=== PATIENT | female | born 1970 | race Caucasian/White ===

== ENCOUNTER 2019-12-26 15:27 | Emergency (ER) | payer BC, SELFPAY ==
--- NOTE | ~2019-12-26 | XR_ITS ---
EXAMINATION: [id number] DATE: 12/26/2019 16:30 INDICATION: Right chest pain. Fall. TECHNIQUE: A frontal view of the chest and 3 views of the right ribs were obtained. COMPARISON: None. FINDINGS: The chest demonstrates clear lungs without pneumonia, pleural effusion, or pneumothorax. Th e heart size is normal. IMPRESSION: 1. No rib fracture. Reviewed, dictated and finalized at location A. ATIENT PROGRAM COORDINATOR IMPRESSION: 1. No rib fracture.
[2019-12-26 16:03] VITALS: BP 156/86; PULSE 98; RESP 18; TEMP 36.7; O2SAT 100
--- NOTE | 2019-12-26 16:03 | ED.GENADULT ---
HPI - General Adult General Chief complaint: Chest Pain <BISI Olmedo Last Filed: 12/26/19 17:41> Stated complaint: right rib pain-fall <BISI Olmedo Last Filed: 12/26/19 17:41> Time Seen by Provider: 12/26/19 16:02 <BISI Olmedo Last Filed: 12/26/19 17:41> Source: patient <BISI Olmedo Last Filed: 12/26/19 17:41> Mode of arrival: ambulatory <BISI Olmedo Last Filed: 12/26/19 17:41> Limitations: no limitations <BISI Olmedo Last Filed: 12/26/19 17:41> History of Present Illness HPI narrative: Patient slipped and fell in her bathroom on Sunday night and hit her right ribs on the edge of the tub. She has had progressively worsening pain and difficulty breathing since that time. Her primary care physician ordered tramadol for the pain which she has been taking 100 mg every 3-4 hours without any relief. <BISI Olmedo Last Filed: 12/26/19 17:41> Related Data Home medications: Home Medications Medication Instructions Recorded Confirmed amlodipine 5 mg tablet 5 mg PO DAILY 04/24/19 buspirone 5 mg tablet 5 mg PO TID 04/24/19 citalopram 40 mg tablet 40 mg PO DAILY 04/24/19 <BISI Olmedo Last Filed: 12/26/19 17:41> Allergies/adverse reactions: Allergies Allergy/AdvReac Type Severity Reaction Status Date / Time ofloxacin Allergy Mild RASH Verified 09/18/18 11:14 ciprofloxacin Allergy Unknown Verified 04/09/12 08:11 Sulfa (Sulfonamide Allergy Unknown Verified 05/01/18 08:17 Antibiotics) <BISI Olmedo Last Filed: 12/26/19 17:41> Review of Systems Review of Systems: All systems reviewed & are unremarkable except as noted in HPI and below <BISI Olmedo Last Filed: 12/26/19 17:41> [facility] Past Medical History Medical History: Medical History Agoraphobia with panic disorder Alcohol abuse Severe obstructive sleep apnea <Nathaly Bravo PA-C - Last Filed: 12/26/19 17:41> Family History Family History: Family History Father Family history of lung cancer Hypertension Family history of chronic obstructive pulmonary disease Mother Family history of lung cancer <Nathaly Bravo PA-C - Last Filed: 12/26/19 17:41> Social History Social History: Social History (Updated 12/26/19 @ 16:14 by Nathaly Bravo PA-C) Smoking status: Former smoker Smoking end date: 02/12/17 Alcohol intake: never Substance use: never Living arrangements: with family <Nathaly Bravo PA-C - Last Filed: 12/26/19 17:41> Exam Const: General: in distress (due to pain) mild <Nathaly Bravo PA-C - Last Filed: 12/26/19 17:41> Orientation/consciousness: patient oriented x3 <Nathaly Bravo PA-C - Last Filed: 12/26/19 17:41> Limitations: no limitations <Nathaly Bravo PA-C - Last Filed: 12/26/19 17:41> HENMT: Head: normal to inspection <Nathaly Bravo PA-C - Last Filed: 12/26/19 17:41> Chest: Chest palpation & inspection: normal inspection of the chest and localized rib tenderness with anteroposterior compression (right ant) <Nathaly Bravo PA-C - Last Filed: 12/26/19 17:41> Resp: Effort & Inspection: labored <Nathaly Bravo PA-C - Last Filed: 12/26/19 17:41> Auscultation: clear to auscultation bilaterally <Nathaly Bravo PA-C - Last Filed: 12/26/19 17:41> Cardio: Rate: regular rate <Nathaly Bravo PA-C - Last Filed: 12/26/19 17:41> Rhythm: regular rhythm <Nathaly Bravo PA-C - Last Filed: 12/26/19 17:41> Skin: General skin exam: normal color <Nathaly Bravo PA-C - Last Filed: 12/26/19 17:41> Other: No bruising noted <Nathaly Bravo PA-C - Last Filed: 12/26/19 17:41> Extrem: General: normal to inspection <BISI Olmedo Last Filed: 12/26/19 17:41> Psych: Mental Status: ment
[2019-12-26] MEDS: IBUPROFEN 400 MG TABLET 800 MG PO (16:20)
[2019-12-26 17:51] VITALS: BP 132/68; PULSE 78; RESP 18; O2SAT 99
== END 2019-12-26 17:52 | disposition home or self-care (01) ==
PROVIDERS: Emergency Provider Emergency Medicine; PCP Family Medicine
DX: S20.211A Contusion of right front wall of thorax, initial encounter (principal); G47.33 Obstructive sleep apnea (adult) (pediatric); F40.01 Agoraphobia with panic disorder; Z87.891 Personal history of nicotine dependence; W01.198A Fall on same level from slipping, tripping and stumbling with subsequent striking against other object, initial encounter
CPT/HCPCS: 71101; 99283; A9270

== ENCOUNTER 2021-09-30 16:51 | Outpatient (CLI) | payer OTHER, SELFPAY ==
--- NOTE | ~2021-09-30 | XR_ITS ---
EXAMINATION: XR elbow RT min 3V DATE: 09/30/2021 17:27 INDICATION: Right elbow pain. TECHNIQUE: 4 views of right elbow were obtained. COMPARISON: None. FINDINGS: Bone alignment is normal. No fracture. Joint spaces are normal. There is an enthesophyte at lateral humeral epicondyle. No elbow joint effusion. There is soft tissue swelling overlying the ole cranon, consistent with bursitis. IMPRESSION: 1. Olecranon bursitis. Reviewed, dictated and finalized at location A. IMPRESSION: 1. Olecranon bursitis.
--- NOTE | ~2021-09-30 | XR_ITS ---
EXAMINATION: XR hip RT 2V w AP pelvis DATE: 09/30/2021 17:27 INDICATION: Right hip pain. TECHNIQUE: An anteroposterior view pelvis and 2 views of right hip standing were obtained. COMPARISON: None. FINDINGS: Bone alignment is normal. No fracture. There is mild osteoarthritis of the hips. There is a n intrauterine device in expected position. IMPRESSION: 1. Mild osteoarthritis of the hips. Reviewed, dictated and finalized at location A.
== END 2021-09-30 16:52 ==
DX: M70.21 Olecranon bursitis, right elbow (principal); M16.0 Bilateral primary osteoarthritis of hip
CPT/HCPCS: 73080; 73502

== ENCOUNTER 2024-05-17 16:23 | Observation (INO) | payer SELFPAY ==
[2024-05-17] VITALS (12 sets, daily range): BP systolic 116–168; BP diastolic 59–90; PULSE 91–115; RESP 12–23; TEMP 36.5; O2SAT 92–100; BMI 26.9
--- NOTE | ~2024-05-17 | XR_ITS ---
EXAMINATION: XR chest 2V Exam Date/Time: 05/17/2024 17:10 CDT HISTORY: CHEST PAIN Comparison: None. RESULT: Lines, tubes, and devices: None. Lungs and pleura: Lordotic position with slightly low lung volumes in the lateral view. Indistinct ve ssels, with possible cephalization. Mild diffuse groundglass opacities and patchy subsegmental basila r airspace disease. Cardiomediastinal silhouette: Enlarged heart. Dilated central pulmonary arteries as can be seen with pulmonary hypertension. Other: No acute osseous or upper abdominal finding. IMPRESSION: Cardiomegaly with pulmonary vascular congestion. Subsegmental basilar atelectasis/consolidation Reviewed, dictated and finalized at location K. IMPRESSION: Cardiomegaly with pulmonary vascular congestion. Subsegmental basilar atelectas is/consolidation
--- OUTSIDE RECORDS SUMMARY | 2024-05-17 16:26 | XMS_ITS | Clinical Summary ---
Author Organization [facility] Address [address] [place] [address] Care Team Providers Care Pattern Grader Cutter Name Role Phone Yoanna Grimes Primary Care Provider [phone] Source Comments [facility],non-owned Affiliates and Associated Physician Practices is amultiple site organization consisting of ambulatory clinics and hospital sitesin [place], [place], [place] and [place]. This disclosure is being madepursuant to the Care Everywhere program and may not contain all information available regarding this patient. Last updated 17.[facility] Social History Tobacco Use Types Packs/Day Years Used Date Smoking Tobacco: Never Assessed Sex and Gender Information Value Date Recorded Sex Assigned at Not on file Gender Identity Not on file Sexual Orientation Not on file Plan of Treatment Health Maintenance Due Date Last Done Comments COLOGUARD (AGES 45-75) - COL ON CA SCREENING 1970 COLON MONITORING 1970 COLONOSCOPY - COLON CA SCREENING 1970 CT COLONOGRAPHY - COLON CA SCREENING 1970 Colorectal Cancer Screening 1970 FIT - COLON CA SCREENING 1970 FLEX SIG - COLON CA SCREENING 1970 LIPID TESTING 1970 MAMMOGRAM 1970 PAP SMEAR 1970 HIV SCREENING 1985 HEPATITIS C SCREENING 03/14/1988 DTAP/TDAP/TD VACCINES (1 - Tdap) 1989 HEPATITIS B VACCINE (1 of 3 - 19+ 3-dose series) 1989 PNEUMOCOCCAL VACCINE 50+ (1 of 1 - PCV) 2020 ZOSTER VACCINE (1 of 2) 2020 COVID-19 VACCINE ( - 2023-2 5 season) 2023 INFLUENZA VACCINE (#1) 2023 DEPRESSION SCREENING 02/13/2024 HIB VACCINE Aged Out No longer eligi ble based on patient's age to complete this topic HPV VACCINE Aged Out No longer eligi ble based on patient's age to complete this topic MENINGOCOCCAL (Group B) VACC INE SHARED DECISION-MAKING Aged Out No longer eligibl e based on patient's age to complete this topic MENINGOCOCCAL GROUPS A/C/Y/W VACCINE Aged Out No longer eligible b ased on patient's age to complete this topic PNEUMOCOCCAL VACCINE Aged Out No long er eligible based on patient's age to complete this topic Care Teams Pattern Grader Cutter Relationship Specialty Start Date End Date Yoanna Grimes [address] [place] [address] PCP - General 04/19/23
--- OUTSIDE RECORDS SUMMARY | 2024-05-17 16:26 | XMS_ITS | Data Portability ---
Author Organization [place] [facility], Carlos Lind Address [address] [place] [address] Assessment Encounter Date Assessment Date Assessment LastModified by Organization Details LastModified Time 05/08/2024 05/08/202404/2024 CBC h/h 17.0/53 CMP Na 146 Cl 107 GFR 80 Cr 0.86 fts nl T 215 G 83 H 60 L 140 m/c 119 A1c 5.7 TSH nl 1) blood counts normal elevated h.h---> check ferritin, fe panel 2) renal fct liver fct normal na and cl slightly elevated--> ? hydrated 3) LDL 140 okay no statin 4) m/c 119 microalbuminuria 5) thyroid nl 6) A1c borderline pre DM 7) htn ? add on amolodipine in 2 weeks if checking 8) appt to get IUD out the above was reviewed the following is plan for today: [email or web address] Not available 05/08/2024 16:02:37 Plan of Treatment Reminders Order Date Submit Date Provider Last Modified By Organization Details Last Modified Time Details Appointments InPerson; Chronic Disease Mgmt 2024 10:30A Damon Grimes MD Not available Not available Not available Lab TSH, ultra-sen sitive, serum 20242 025 GLADIS [facility] ([place]), [address] [facility], [place], [address], 05/06/2024 11:14:55 albumin/c reatinine , mass ratio, urine 05/05/2 025 GLADIS [facility] ([place]), [address] [facility], [place], [address], 05/06/2024 11:14:54 CBC w/ auto diff 2024 025 [facility] ([place]), [address] [place], [address], 05/06/2024 11:14:52 CMP, serum or plasma 2024 025 [facility]), [address] [place], [address], 05/06/2024 11:14:53 lipid panel, serum 2024 025 [facility]), [address] [place], [address], 05/06/2024 11:14:53 HbA1c (hemoglob in A1c), blood 2024 [facility]), [address] [place], [address], 05/06/2024 11:14:54 Referral [facility] referral - pt with longstand ing anxiety refuses to see psychiatr ist, advised germaine james , to start with John Chand [email or web address] [facility], [address] [place], [address], 04/23/2024 14:43:27 Procedures None recorded. Surgeries None recorded. Imaging None recorded. Medication Orders olmesarta n 20 mg-hydroc hlorothia zide 12.5 mg tablet 2024 [facility], [address] [place], [address], 05/05/2024 11:29:30 alprazola m 0.5 mg tablet 2024 [facility], [address] [place], [address], 04/23/2024 14:43:29 amoxicill in 875 mg tablet 2023 025 [facility] [address], [address] [facility], [place], [address], 03/17/2024 15:03:44 Patient TargetsNo targets recorded. Patient InstructionsNo instructions recorded. Reason for Referral Behavioral Health Referral f or Generalized anxiety disorder pt with longstanding anxiety refuses to see psychiatrist, advised counseling , to start with John Chand Referring Physician: Chichi Grimes, Family Medicine, Encounter Date: 04/23/2024 Results Created Date Observation Date Name Description Value Unit Range Abnormal Flag Note LastModifiedBy Organization Detail LastModifiedTime 05/06/1905/06/2024 CBC WITH DIFFE RENTI AL/PL ATELE T WBC 7.7 x10e3 /uL 3.4-10 .8 normal Not Available [facility] ([facility]) [address] [place], [address], 05/06/2024 11:14:52 05/06/1905/06/2024 CBC WITH DIFFE RENTI AL/PL ATELE T RBC 5.31 x10e6 /uL 3.77-5 .28 above high normal Not Available [facility] ([facility]) [address] [place], [address], 05/06/2024 11:14:52 05/06/1905/06/2024 CBC WITH DIFFE RENTI AL/PL ATELE T hemoglobin 17.0 g/dL 11.1-1 5.9 above high normal Not Available [facility] ([facility]) [address] [place], [address], 05/06/2024 11:14:52 05/06/1905/06/2024 CBC WITH DIFFE RENTI AL/PL ATELE T hematocrit 52.9 % 34.0-4 6.6 above high normal Not Available [facility] ([facility]) [address] [place], [address], 05/06/2024 11:14:52 05/06/19 25 05/06/2024 CBC WITH DIFFE RENTI AL/PL ATELE T MCV 100 fL 79-97 above high normal Not Available [facility] ([facility]) [address] [facility], [place], [address], 05/06/2024 11:14:52 05/06/1905/06/2024 CBC WITH DIFFE RENTI AL/PL ATELE T MCH 32.0 pg 26.6-3 3.0 normal Not Available [facility] ([facility]) [address] [facility], [place], [address], 05/06/2024 11:14:52 05/06/1905/06/2024 CBC WITH DIFFE RENTI AL/PL ATELE T MCHC 32.1 g/dL 31.5-3 5.7 normal Not Available [facility] ([facility]) [address] [facility], [place], [address], 05/06/2024 11:14:52 05/06/19 25 05/06/2024 CBC WITH DIFFE RENTI AL/PL ATELE T RDW 13.5 % 11.7-1 5.4 Not Available [facility] ([facility]) [address] [facility], [place], [address], 05/06/2024 11:14:52 05/06/1905/06/2024 CBC WITH DIFFE RENTI AL/PL ATELE T platelets 267 x10e3 /uL 150-45 0 normal Not Available [facility] ([facility]) [address] [facility], [place], [address], 05/06/2024 11:14:52 05/06/1905/06/2024 CBC WITH DIFFE RENTI AL/PL ATELE T neutrophils 50 % not estab. normal Not Available [facility] ([facility]) [address] [facility], [place], [address], 05/06/2024 11:14:52 05/06/19 25 05/06/2024 CBC WITH DIFFE RENTI AL/PL ATELE T lymphs 38 % not estab. normal Not Available [facility] ([facility]) [address] [facility], [place], [address], 05/06/2024 11:14:52 05/06/19 25 05/06/2024 CBC WITH DIFFE RENTI AL/PL ATELE T monocytes 9 % not estab. normal Not Available [facility] ([facility]) [address] [facility], [place], [address], 05/06/2024 11:14:52 05/06/19 25 05/06/2024 CBC WITH DIFFE RENTI AL/PL ATELE T eos 2 % not estab. normal Not Available [facility] ([facility]) [address] [facility], [place], [address], 05/06/2024 11:14:52 05/06/19 25 05/06/2024 CBC WITH DIFFE RENTI AL/PL ATELE T basos 1 % not estab. 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 0 normal Not Available [facility] ([facility]) [address] [facility], [place], [address], 05/06/2024 11:14:52 05/06/19 25 05/06/2024 CBC WITH DIFFE RENTI AL/PL ATELE T lymphs (absolute) 2.9 x10e3 /uL 0.7-3. 1 normal Not Available [facility] ([facility]) [address] [place], [address], 05/06/2024 11:14:52 05/06/1905/06/2024 CBC WITH DIFFE RENTI AL/PL ATELE T monocytes(ab solute) 0.7 x10e3 /uL 0.1-0. 9 normal Not Available [facility] ([facility]) [address] [place], [address], 05/06/2024 11:14:52 05/06/1905/06/2024 CBC WITH DIFFE RENTI AL/PL ATELE T eos (absolute) 0.1 x10e3 /uL 0.0-0. 4 normal Not Available [facility] ([facility]) [address] [place], [address], 05/06/2024 11:14:52 05/06/1905/06/2024 CBC WITH DIFFE RENTI AL/PL ATELE T baso (absolute) 0.1 x10e3 /uL 0.0-0. 2 normal Not Available [facility] ([facility]) [address] [place], [address], 05/06/2024 11:14:52 05/06/1905/06/2024 CBC WITH DIFFE RENTI AL/PL ATELE T immature granulocytes 0 % not estab. Not Available [facility] ([facility]) [address] [place], [address], 05/06/2024 11:14:52 05/06/1905/06/2024 CBC WITH DIFFE RENTI AL/PL ATELE T immature grans (abs) 0.0 x10e3 /uL 0.0-0. 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 METAB OLIC PANEL (14) glucose 99 mg/dL 70-99 normal Not Available [facility] ([facility]) [address] [facility], [place], [address], 05/06/2024 11:14:53 05/06/19 25 05/06/2024 COMP. METAB OLIC PANEL (14) BUN 18 mg/dL 6-24 normal Not Available [facility] ([facility]) [address] [place], [address], 05/06/2024 11:14:53 05/06/19 25 05/06/2024 COMP. METAB OLIC PANEL (14) creatinine 0.86 mg/dL 0.57-1 .00 normal Not Available [facility] ([facility]) [address] [place], [address], 05/06/2024 11:14:53 05/06/19 25 05/06/2024 COMP. METAB OLIC PANEL (14) eGFR 80 mL/mi n/1.7 3 >59 normal Not Available [facility] ([facility]) [address] [place], [address], 05/06/2024 11:14:53 05/06/19 25 05/06/2024 COMP. METAB OLIC PANEL (14) BUN/creatini ne ratio 21 9-23 normal Not Available [facility] ([facility]) [address] [place], [address], 05/06/2024 11:14:53 05/06/19 25 05/06/2024 COMP. METAB OLIC PANEL (14) sodium 146 mmol/ L 134-14 4 above high normal Not Available [facility] ([facility]) [address] [facility], [address], 05/06/2024 11:14:53 05/06/19 25 05/06/2024 COMP. METAB OLIC PANEL (14) potassium 4.8 mmol/ L 3.5-5. 2 normal Not Available [facility] ([facility]) [address] [facility], [address], 05/06/2024 11:14:53 05/06/19 25 05/06/2024 COMP. METAB OLIC PANEL (14) chloride 107 mmol/ L 96-106 above high normal Not Available [facility] ([facility]) [address] [facility], [address], 05/06/2024 11:14:53 05/06/19 25 05/06/2024 COMP. METAB OLIC PANEL (14) carbon dioxide, total 24 mmol/ L 20-29 normal Not Available [facility] ([facility]) [address] [facility], [address], 05/06/2024 11:14:53 05/06/19 25 05/06/2024 COMP. METAB OLIC PANEL (14) calcium 10.0 mg/dL 8.7-10 .2 normal Not Available [facility] ([facility]) [address] [facility], [address], 05/06/2024 11:14:53 05/06/19 25 05/06/2024 COMP. METAB OLIC PANEL (14) protein, total 7.2 g/dL 6.0-8. 5 normal Not Available [facility] ([facility]) [address] [facility], [address], 05/06/2024 11:14:53 05/06/19 25 05/06/2024 COMP. METAB OLIC PANEL (14) albumin 4.5 g/dL 3.8-4. 9 normal Not Available [facility] ([facility]) [address] [facility], [address], 05/06/2024 11:14:53 05/06/19 25 05/06/2024 COMP. METAB OLIC PANEL (14) globulin, total 2.7 g/dL 1.5-4. 5 Not Available [facility] ([facility]) [address] [facility], [address], 05/06/2024 11:14:53 05/06/19 25 05/06/2024 COMP. METAB OLIC PANEL (14) bilirubin, total 0.3 mg/dL 0.0-1. 2 normal Not Available [facility] ([facility]) [address] [facility], [place], [address], 05/06/2024 11:14:53 05/06/19 25 05/06/2024 COMP. METAB OLIC PANEL (14) alkaline phosphatase 100 IU/L 44-121 normal Not Available [facility] ([facility]) [address] [facility], [address], 05/06/2024 11:14:53 05/06/19 25 05/06/2024 COMP. METAB OLIC PANEL (14) AST (SGOT) 21 IU/L 0-40 normal Not Available [facility] ([facility]) [address] [facility], [address], 05/06/2024 11:14:53 05/06/19 25 05/06/2024 COMP. METAB OLIC PANEL (14) ALT (SGPT) 19 IU/L 0-32 normal Not Available [facility] ([facility]) [address] [place], [address], 05/06/2024 11:14:53 05/06/19 25 05/06/2024 LIPID PANEL W/ CHOL/ HDL RATIO cholesterol, total 215 mg/dL 100-19 9 above high normal Not Available [facility] ([facility]) [address] [place], [address], 05/06/2024 11:14:53 05/06/19 25 05/06/2024 LIPID PANEL W/ CHOL/ HDL RATIO triglyceride s 83 mg/dL 0-149 normal Not Available [facility] ([facility]) [address] [place], [address], 05/06/2024 11:14:53 05/06/19 25 05/06/2024 LIPID PANEL W/ CHOL/ HDL RATIO HDL cholesterol 60 mg/dL >39 normal Not Available [facility] ([facility]) [address] [place], [address], 05/06/2024 11:14:53 05/06/19 25 05/06/2024 LIPID PANEL W/ CHOL/ HDL RATIO VLDL cholesterol song 15 mg/dL 5-40 Not Available [facility] ([facility]) [address] [place], [address], 05/06/2024 11:14:53 05/06/19 25 05/06/2024 LIPID PANEL W/ CHOL/ HDL RATIO LDL chol calc ([facility]) 140 mg/dL 0-99 above high normal Not Available [facility] ([facility]) [address] [place], [address], 05/06/2024 11:14:53 05/06/1905/06/2024 LIPID PANEL W/ CHOL/ HDL RATIO LDL calc 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 chol/HDL ratio 3.6 ratio 0.0-4. 4 T. Chol/ HDL Ratio Men Women 1/2 Avg.R isk 3.4 3.3 Avg.R isk 5.0 4.4 2X Avg.R isk 9.6 7.1 3X Avg.R isk 23.4 11.0 Not Available [facility] ([facility]) [address] [place], [address], 05/06/2024 11:14:53 05/06/19 25 05/06/2024 ALBUM IN/CR EATIN INE RATIO ,URIN E creatinine, urine 90.2 mg/dL not estab. normal Not Available [facility] ([facility]) [address] [place], [address], 05/06/2024 11:14:54 05/06/19 25 05/06/2024 ALBUM IN/CR EATIN INE RATIO ,URIN E albumin, urine 107.7 ug/mL not estab. Not Available [facility] ([facility]) [address] [place], [address], 05/06/2024 11:14:54 05/06/19 25 05/06/2024 ALBUM IN/CR EATIN INE RATIO ,URIN E alb/creat ratio 119 mg/g_ creat 0-29 above high normal Gabriela l: 0 - 29 Moder ately incre ased: 30 - 300 Sever nishant incre ased: >300 Not Available [facility] ([facility]) [address] [place], [address], 05/06/2024 11:14:54 05/06/1905/06/2024 HEMOG LOBIN A1C hemoglobin A1C 5.7 % 4.8-5. 6 above high normal Predi abete s: 5.7 - 6.4 Diabe omi: >6.4 Glyce sandro contr ol for adult s with diabe omi: <7.0 Not Available [facility] ([facility]) [address] [place], [address], 05/06/2024 11:14:54 05/06/1905/06/2024 TSH RFX ON ABNOR MAL TO FREE T4 TSH 1.080 uIU/m L 0.450- 4.500 normal Not Available [facility] ([facility]) [address] [place], [address], 05/06/2024 11:14:55 05/06/19 25 05/07/2024 IRON AND TIBC iron bind.cap.(TI BC) 347 ug/dL 250-45 0 normal Not Available [facility] ([facility]) [address] [place], [address], 05/07/2024 03:08:34 05/06/1905/07/2024 IRON AND TIBC UIBC 288 ug/dL 131-42 5 normal Not Available [facility] ([facility]) [address] [place], [address], 05/07/2024 03:08:34 05/06/1905/07/2024 IRON AND TIBC iron 59 ug/dL 27-159 normal Not Available [facility] ([facility]) [address] [place], [address], 05/07/2024 03:08:34 05/06/1905/07/2024 IRON AND TIBC iron saturation 17 % 15-55 normal Not Available [facility] ([facility]) [address] [place], [address], 05/07/2024 03:08:34 05/06/1905/07/2024 PINA TIN ferritin 57 NG/mL 15-150 normal Not Available [facility] ([facility]) [address] [place], [address], 05/07/2024 03:08:35 05/06/19 25 05/06/2024 REAL EN AUTHO RIZAT ION written authorizatio n Commen t Writt en Autho rijacquelint ion Recei adán. Autho rizat ion recei adán from CHICHI GRIMES for Link Michelle mcginnis on 05-06 Logge d by Rodney Pena an Not Available [facility] ([facility]) [address] [facility], [place], [address], 05/07/2024 03:08:35 Result Notes None recorded. Problems Name Problem SNOMED Code Status Onset Date Resolution Date Notes Provider Name and Address Organization Details Recorded Time Hidradeni tis suppurati va 23733577 Active 2022 went to [facility] 09/2022 did not like , ref to new derm 10/2022 (has has surgery on one axilla , for most of 2022 GUERIN well controlle d) Chichi Grimes MD [address], [place], [address], [place] - [facility] 4 10:14:15 Essential hypertens ion 15528662 Active Chichi Grimes MD [address], [place], [address], [place] [facility] 4 10:04:32 Smoker 10828589 Active 2023 > 30 pack years Chcihi Grimes MD [address], [place], [address], [place] [facility] 4 13:53:46 Generaliz ed anxiety disorder 60021668 Active 2023 Chichi Grimes MD [address], [place], [address], [place] [facility] 4 10:05:09 Attention deficit hyperacti vity disorder 124001475 Active 2023 nonstimul ant rec per neuropsyc h eval, ref to psych late fall 2022 Chichi Grimes MD [address], [place], [address], [place] [facility] 4 10:09:30 Posttraum atic stress disorder 04771389 Active 2023 I do believe she has this but not part of her neuropsyc h evaluatio n dx, see ADRY she can further d/w psychiatr ist at her appt Chichi Grimes MD [address], [place], [address], [place] [facility] 4 13:55:55 Chronic depressio n 377157560 Active 2023 Chichi Grimes MD [address], [place], [address], [place] [facility] 4 10:05:48 Liver enzymes level above reference range 096175615 Active 2023 Chichi Grimes MD [address], [place], [address], [place] [facility] 4 10:06:00 Hyperlipi demia 66771857 Active 2023 no meds, low ascvd score Chichi Grimes MD [address], [place], [address], [place] [facility] 4 10:06:22 Body mass index 30+ - obesity 936644588 Active 2023 BMI 31, ref to bariatric sx 01/04 Chichi Grimes MD [address], [place], [address], [place] [facility] 4 10:07:33 Preventiv e monitorin g Active 2023 Immunizat ions Flu Vaccine Annually Tdap ? declines Covid Vaccine: series completed , no booster Shingrix (Age 50+) due age 50 PneumoVax /PSV23 (age 65+, Smoker, Chronic Dz) age 65 PSV15/20 (age 65+, Chronic Dz) consider age 65 Hepatitis B (Diabetes /Travel/H ealthcare ) 01/04 nonimmune Hepatitis A (Slide Fastener Chain Assembler/T ravel) 01/04 nonimmune Pap Smear/HPV : 12/2020 we have confirmat ion done, but no results --rpt 12/202304/23/2019 HPV and Pap normal Mammogram : Oct 2021 [facility] mammogram [place] py: not indicated Cologuard : ref Lung cancer screen ( Age 50, 20 pack yr hx): referred 2021, [facility] could not get hold of pt 01/03 DEXA (age 65+, 50+ with RF): not indicated AAA Screen age 65 Cholester ol: 01/04 T211 H52 G105 L138 improved 12/03 T263 H63 G115 L176 ASCVD 5.3% HbA1c: 12/03 5.5 Hepatitis C screen: 12/03 neg HIV screen: 01/04 neg STI screen (age less than 25 or with RF): 01/04 RPR neg Other Labs: 01/04 CMP alt 31 Cr 0.82 Gfr 86 K4.2 12/03 FSH 72, LH 36 12/03 CMP slt 32 Cr 0.81 GFR 88 K4.0 Dental Care:conf irms regular care Vision Care: confirms regular care Chichi Grimes MD [address], [place], [address], [place] [facility] 4 10:08:12 Chronic insomnia 657602523 Active 2023 Chichi Grimes MD [address], [place], [address], [place] [facility] 4 10:08:26 Low back pain 037937405 Active 2023 no sciatica Chichi Grimes MD [address], [place], [address], [place] [facility] 4 10:08:42 Chronic alcoholis m in remission 792237800 Active 2023 Chichi Grimes MD [address], [place], [address], [place] [facility] 4 10:08:53 Systemic lupus erythemat osus 55981606 Active 2023 no current or recent rx ; was seen by rheumatol ogy was on plaquenil , self d/melissa and never did f/u Chichi Grimes MD [address], [place], [address], [place] [facility] 4 10:10:14 Nicotine dependenc e 75547606 Active 12/04 ongoing use of nicotine patch but off the cigs Chichi Grimes MD [address], [place], [address], [place] [facility] 4 10:10:35 Obstructi ve sleep apnea syndrome 59627023 Active 2023 intoleran t of cpap Chichi Grimes MD [address], [place], [address], [place] [facility] 4 10:10:51 Screening due 171551376 Active 2023 mammogram due, [facility], lung cancer screen due, never got it done last year, consider pap 12/2023 as although she has one outside [facility] in 12/2020 (no results have been sent) Chichi Grimes MD [address], [place], [address], [place] [facility] 4 10:03:13 Serum blood tests Active 2023 --05/06 ferritin and fe panel nl CBC h/h 17.0/53 CMP Na 146 Cl107 GFR 80 Cr 0.86 fts nl T 215 G 83 H 60 L 140 m/c 119 A1c 5.7 TSH nl 12/03 CMP slt 32 Cr 0.81 GFR 88 K4.0 T263 H63 G115 L176ASC VD 5.3% A1c 5.5 FSH 72, LH 36 Hep C neg we have 2020 pap results next due 2024 IUD out 02/02 04/06 BP check DUE 4-8 weeks 04/06 CMP alt 33 gfr 77 cr 0.9 k 4.6 01/04 CMP alt 31 nl Cr 0.82 Gfr 86 K4.2 T211 H52 G105 L138 ASCVD < 5%, A1c 5.5 HIV neg A imm, B,C neg RPR neg Hep C RNA due 01/09/23 Chichi Grimes MD [address], [place], [address], [place] [facility] 5 10:34:40 Contracep tion care managemen t Active 2023 ? IUD out per pt hx was still in in 2021 Chichi Grimes MD [address], [place], [address], [place] [facility] 4 13:54:07 Multiple joint pain 67408276 Active 2023 chronic intermitt ent R elbow chronic intermite nt R hip Chichi Grimes MD [address], [place], [address], [place] [facility] 4 13:54:51 Axillary hidradeni tis suppurati va 755865962 Active 2022 Chichi Grimes MD [address], [place], [address], [place] [facility] 5 15:53:23 Genuine stress incontine nce 15022579 Active 2021 Chichi Grimes MD [address], [place], [address], [place] [facility] 5 15:53:46 Sleep apnea 55564674 Active 2021 Chichi Grimes MD [address], [place], [address], [place] [facility] 5 15:54:14 Tobacco dependenc e in remission 055008246 Active 2022 ?? in remission Chichi Grimes MD [address], [place], [address], [place] [facility] 5 15:54:31 Microalbu minuria 798615747 Active 2024 Chichi Grimes MD [address], [place], [address], [place] [facility] 5 11:34:24 Dyspnea at rest 569929561 Active 2024 Chichi Grimes MD [address], [place], [address], [place] [facility] 5 16:09:18 Hematocri t above reference range 926060738 Active 2024 Chichi Grimes MD [address], [place], [address], [place] [facility] 5 16:09:22 Hemoglobi n above reference range 299399242 Active 2024 Chichi Grimes MD [address], [place], [address], [place] [facility] 5 16:09:22 Tobacco dependenc e caused by cigarette s 611325933504 95697 Active 2024 Chichi Grimes MD [address], [place], [address] [place] [address] 4, [facility] 5 16:09:26 Problem Notes None recorded. Procedures Surgical History Date Name Laterality Status Provider Name and Address Organization Details Recorded Time 12/24/19 22 screening for malignant neoplasm of colon completed Chichi Grimes MD [address], [place], [address] [place] [address], [facility] 03/26/2023 10:01:19 12/24/19 21 screening for malignant neoplasm of cervix completed Cihchi Grimes MD [address], [place], [address] [place] [address], [facility] 03/26/2023 10:01:39 section completed Chichi Grimes MD [address], [place], [address] [place] [address], [facility] 05/16/2023 13:50:39 procedure on upper arm completed Chichi Grimes MD [address], [place], [place], [address] [place] [address], [facility] 05/16/2023 13:50:28 Cholecystectomy completed Chichi Grimes MD [address], [place], [place], [address] [place] [address], [facility] 03/26/2023 10:02:12 Imaging Results None recorded. Procedure Notes None recorded. Medical Equipment None Reported. Allergies Allergen ID Allergen Name Allergen Category Reaction Reaction Severity Criticality Documentation Date Start Date Code Code System Note Provider Name and Address Organization Details Recorded Time 682385 ciproflox acin medicatio n Not available Not available Not available 02/01/2023 2551 RxNorm Snow Mccullough NP [address], [place], [address], [facility] 3 17:37:50 [id number] Floxin medicatio n Not available Not available Not available 05/31/202317255 8 RxNorm Comme nt: React ion Class : Aller gy; Not Available [facility] 4 17:59:10 [id number] Cipro medicatio n Not available Not available Not available 05/31/202346540 3 RxNorm Comme nt: React ion Class : Aller gy; Not Available [facility] 4 17:59:10 Medications Name Sig Start Date Stop Date Status Note LastModified by Organization Details LastModified Time amoxicill in 500 mg capsule TAKE 1 CAPSULE BY MOUTH THREE TIMES DAILY UNTIL ALL TAKEN 05/05 completed Not Available Not Available Not Available bupropion HCl SR 150 mg tablet,12 hr sustained -release 12/07 completed Disconti nueDate: 12/08/19 8:54:34 AM Disco ntinueTy pe: User Manual DC StopT ype: Physicia n Stop Simeon gIdentif icationN umber: [id number] S cheduled PRN: No Total Refills: 0 Consta ntIndica tor: Yes CSAS chedule: 0 active _status_ dt_tm: 12/08/19 8:30:11 AM Not Available Not Available Not Available doxycycli ne hyclate 100 mg capsule 04/23 completed StopType : Soft Stop Simeon gIdentif icationN umber: [id number] T otalRefi lls: 0 Consta ntIndica tor: Yes CSAS chedule: 0 active _status_ dt_tm: 09/20/2022 1:04:30 PM Not Available Not Available Not Available nicotine 14 mg/24 hr daily transderm al patch APPLY 1 PATCH TOPICALL Y ONCE DAILY STARTING AFTER 21 MG PATCH 05/05 completed Not Available Not Available Not Available clindamyc in HCl 300 mg capsule 03/10 completed Duration : 10 Durat ionUnit: days Dis continue Date: 9:15:38 AM Disco ntinueTy pe: User Manual DC StopT ype: Physicia n Stop Simeon gIdentif icationN umber: [id number] S cheduled PRN: No Total Refills: 0 Consta ntIndica tor: Yes CSAS chedule: 0 active _status_ dt_tm: 12/08/19 8:30:11 AM Not Available Not Available Not Available citalopra m 40 mg tablet Take 1 tablet every day by oral route. 05/05 completed Not Available Not Available Not Available hydrocodo ne 5 mg-acetam inophen 325 mg tablet TAKE 1 TABLET BY MOUTH EVERY 6 HOURS NEEDED FOR PAIN active Not Available Not Available No t Available clonazepa m 0.5 mg tablet TWICE DAILY NEEDED FOR 2-4 WEEKS , then to wean down to once daily , plan is to wean off complete ly 04/23 completed plan in 01/01/23 1. Generali zed anxiety disorder with panic attacks , Depressi on, ADHD, PTSD --better due to not working, focusing on self care-- more anxiety than depressi on per psych eval, also determin ed she has combined ADHD PLAN : --has not connecte d with [facility] re-encou raged to do so --has appt she thinks with psych based on my referral on 01/05/23 , told to keep this --we should have sent neuropsy eval with referral but the recs on this eval were 1) change celexa to another med such as trintill ex/rexul ti --she is open to this as long as does not have signific ant 2ndary weight gain 2) eventual ly drop the wellbutr in as one med will likely be enough 3) treat ADHD with stimulan t only once ADRY controll ed as concern for worsenin g her ADRY with initial stimulan t use 4) nonpharm acologic al options were reviewed with pt at that eval , has not implemen hanna them but doing some Not Available Not Available Not Available amlodipin e 5 mg tablet Take 1 tablet every day by oral route. 03/17 completed Not Available Not Available Not Available amoxicill in 500 mg tablet 1 tab(s) Oral tid,x14 days 03/20 completed Duration : 14 Durat ionUnit: day(s) D iscontin ueDate: 03/20/2022 5:26:03 PM Disco ntinueTy pe: User Manual DC StopT ype: Physicia n Stop Simeon Wright umber: [id number] S cheduled PRN: No Total Refills: 0 Consta ntIndica tor: Yes CSAS chedule: 0 active _status_ dt_tm: 9:19:23 AM Not Available Not Available Not Available alprazola m 0.5 mg tablet TAKE 1 TO 2 TABLETS BY MOUTH ONCE DAILY NEEDED FOR ANXIETY active Not Available Not Available No t Available amoxicill in 875 mg tablet Take 1 tablet every 12 hours by oral route for 10 days. 03/17 completed Not Available Not Available Not Available clindamyc in 1 % topical gel APPLY A THIN LAYER TO THE AFFECTED AREA(S) BY TOPICAL ROUTE 2 TIMES PER DAY 04/23 completed Not Available Not Available Not Available trazodone 100 mg tablet TAKE 1 TABLET BY MOUTH ONCE DAILY IN THE EVENING 2024 active Not Available Not Available Not Avai lable buspirone 10 mg tablet 1 tab(s) Oral bid,Inst r:bid prn anxiety not to take with clonazep am may alternat e with 09/20 completed Disconti nueDate: 09/20/2022 1:26:29 PM Disco ntinueTy pe: User Manual DC StopT ype: Physicia n Stop Simeon Gould icationN umber: [id number] S cheduled PRN: No Total Refills: 0 Consta ntIndica tor: Yes CSAS chedule: 0 active _status_ dt_tm: 07/13/2022 1:39:58 PM Not Available Not Available Not Available nicotine 21 mg/24 hr daily transderm al patch 1 patch(es ) Topical daily 05/05 completed Not Available Not Available Not Available diclofena c sodium 75 mg tablet,de layed release Take 1 tablet by mouth twice daily 2024 active Not Available Not Available Not Avai lable doxycycli ne hyclate 100 mg tablet Take 1 tablet twice a day by oral route. 04/23 completed ??? not taking, calls in for amoxil instead. Not Available Not Available Not Available nicotine 7 mg/24 hr daily transderm al patch 1 patch(es ) Topical daily,x3 0 days,Ins tr:start after completi on of 14 mg patch 05/09 completed Duration : 30 Durat ionUnit: days Sto pType: Physicia n Stop Simeon Gould icationMaritza umber: [id number] S cheduled PRN: No Total Refills: 1 Consta ntIndica tor: Yes CSAS chedule: 0 active _status_ dt_tm: 9:33:51 AM Not Available Not Available Not Available valsartan 160 mg tablet 12/07 completed Disconti nueDate: 12/08/19 8:54:34 AM Disco ntinueTy pe: User Manual DC StopT ype: Physicia n Stop Simeon syedtionMaritza umber: [id number] S cheduled PRN: No Total Refills: 0 Consta ntIndica tor: Yes CSAS chedule: 0 active _status_ dt_tm: 12/08/19 8:30:11 AM Not Available Not Available Not Available valsartan 160 mg-hydroc hlorothia zide 25 mg tablet Take 1 tablet by mouth once daily 2023 active last seen 12/2022, no further refills until f/u (appt due 06/2023is h) Not Available Not Available Not Available clonazepa m 0.25 mg disintegr ating tablet 1 tab(s) Oral bid 07/13 completed Disconti nueDate: 07/13/2022 1:39:00 PM Disco ntinueTy pe: User Manual DC StopT ype: Physicia n Stop Simeon syedtionMaritza umber: [id number] T otalRefi lls: 0 Consta ntIndica tor: Yes CSAS chedule: 4 active _status_ dt_tm: 06/15/2022 2:18:02 PM Not Available Not Available Not Available olmesarta n 20 mg-hydroc hlorothia zide 12.5 mg tablet Take 1 tablet every day by oral route for 30 days. 2024 active Not Available Not Available Not Avai lable bupropion HCl XL 300 mg 24 hr tablet, extended release TAKE 1 TABLET BY MOUTH ONCE DAILY . APPOINTM ENT REQUIRED FOR FUTURE REFILLS 05/05 completed Not Available Not Available Not Available bupropion HCl XL 150 mg 24 hr tablet, extended release TAKE 1 TABLET BY MOUTH DAILY 05/05 completed needs f/u appt no further refiills Not Available Not Available Not Available topiramat e 50 mg tablet Take 1 tablet twice a day by oral route. active Not Available Not Available No t Available diclofena c 1 % topical gel APPLY 2 GRAMS TO THE AFFECTED AREA(S) BY TOPICAL ROUTE 4 TIMES PER DAY 05/05 completed Not Available Not Available Not Available Vitals Date Recorded Body height Body mass index (BMI) Body weight Provider Name and Address Organization Details Last Updated DateTime 11/12/2023 165.1 cm 31.3 kg/m2 71991.37 g Chichi Grimes MD [address], [place], [address], [place] [facility] 11/12/2023 15:39:32 Date Recorded Body height Body mass index (BMI) Body weight Provider Name and Address Organization Details Last Updated DateTime 04/23/2024 165.1 cm 28.3 kg/m2 74979.7 g Nicolasa Santoroonald [place] [facility] 04/23/2024 14:23:13 Date Recorded Body height Body mass index (BMI) Body weight Body temperature Oxygen saturation Oxygen saturation in Arterial blood by Pulse oximetry Heart rate Systolic blood pressure Diastolic blood pressure Provider Name and Address Organization Details Last Updated DateTime 165.1 cm 28.5 kg/m2 62098.0 1 g 98 [degF] 99 % 99 % 115 /min 188 mm[Hg] 104 mm[Hg] Shamyahaira Re [place] [facility] 11:02:03 Date Recorded Systolic blood pressure Diastolic blood pressure Provider Name and Address Organization Details Last Updated DateTime 05/05/2024 160 mm[Hg] 100 mm[Hg] Chichi Grimes MD [address], [place], [address], [place] [facility] 05/05/2024 11:26:10 Date Recorded Body height Body mass index (BMI) Body weight Provider Name and Address Organization Details Last Updated DateTime 05/08/2024 165.1 cm 28.5 kg/m2 18263.3 g Shamica Re [place] [facility] 05/08/2024 15:00:19 Social History Question Answer Notes LastModified by Organizat ion Details LastModified Time Tobacco Smoking Status Current Some Day Smoker Reddy Grimaldo null, [place] [facility] 05/05/2024 10:56:25 What Is Your Level Of Alcohol Consumption? None [email or web address] Information not available 05/03/2023 What Is Your Level Of Caffeine Consumption? None Information not available 05/03/2023 How Much Tobacco Do You Chew? None Information not available 05/05/2024 Are You Currently Employed? Yes [email or web address] Information not available 05/03/2023 What Is The Highest Grade Or Level Of School You Have Completed Or The Highest Degree You Have Received? [id number] Information not available 05/05/2024 What Is Your Occupation? Works [employer] Information not available 05/03/2023 Cigar Smoking No Information not available 05/05/2024 Does Anyone Insult Or Talk Down To You? Fairly Often Information not available 05/05/2024 Does Anyone Physically Hurt You At Home? Never Information not available 05/05/2024 Does Anyone Scream Or Curse At You? Sometimes Information not available 05/05/2024 Does Anyone Threaten/bully You With Harm? Never Information not available 05/05/2024 Lives With Information no t available 05/05/2024 Have You Ever Served In The ? No Information not available 05/05/2024 What Was The Date Of Your Most Recent Tobacco Screening? 05/08/2024 Information not available 05/08/2024 What Is Your Current Pack Years? 30ormorepacky ears [email or web address] Information not available 05/03/2023 What Is Your Relationship Status? [email or web address] Information not available 05/03/2023 How Much Tobacco Do You Smoke? 1 PPD [email or web address] Information not available 05/03/2023 Has Tobacco Cessation Counseling Been Provided? Yes Quit Mulitple Times [email or web address] Information not available 05/03/2023 Do You Or Have You Ever Used Any Other Forms Of Tobacco Or Nicotine? No [email or web address] Information not available 05/03/2023 Sex: Unknown Functional Status None recorded. Mental Status None recorded. Family History Relationship Description Onset Age of this Age Resolved Age Notes LastModified by Organization Details LastModified Time Mother Malignant tumor of lung [email or web address] Not available 04/12 14:22:56 Father Malignant tumor of lung [email or web address] Not available 04/12 14:22:56 Brother Lupus erythematosu s [email or web address] Not available 04/12 14:22:56 Paternal Grandfather Myocardial infarction Not available 05/15 13:51:22 Paternal Grandfather Essential hypertension [email or web address] Not available 0 04/23/2024 14:22:56 Paternal Grandmother Myocardial infarction [email or web address] Not available 05/15 13:51:22 Paternal Grandmother Essential hypertension [email or web address] Not available 0 04/23/2024 14:22:56 Medical History No medical history recorded. Gynecological HistoryNo gynecological history recorded. Obstetrics History GPAL:G 0 P 0 0 0 0 Past Encounters Encounter ID Performer Location Encounter Start Date Encounter Closed Date Diagnosis/Indication Diagnosis SNOMED-CT Code Diagnosis ICD10 Code Diagnosis Note [id number] MD [facility] [address] [place] [address] 11/12/2023 15:37:41 11/12/2023 16:00:57 Axillary hidradenitis suppurativa 945390844 L73.2 RECURRENCE last abx> 6 mo agohas not f/u with dermatolog ist, has seen 2will treat with amoxilpt instructed to f/u as long over due for PE and missed her Spring Apptmed sent to [id number] MD Gi [facility] [address] [place] [address] 04/23/2024 14:22:46 04/24/2024 08:23:50 Generalized anxiety disorder 48890166 F41.1 last plan in . Generalize d anxiety disorder with panic attacks , Depression , ADHD, PTSD--bett er due to not working, focusing on self care-- more anxiety than depression per psych eval, also determined she has combined ADHDPLAN :--has not connected with [employer] to do so--has appt she thinks with psych based on my referral on 01/05/23, told to keep this--we should have sent neuropsych eval with referral but the recs on this eval were1) change celexa to another med such as trintillex /rexulti --she is open to this as long as does not have significan t 2ndary weight gain2) eventually drop the wellbutrin as one med will likely be enough3) treat ADHD with stimulant only once ADRY controlled as concern for worsening her ADRY with initial stimulant use4) nonpharmac ological options were reviewed with pt at that eval , has not implemente d them but doing some 04/2024 not seen or treated since 12/2022xan ax reviewed but only prn and only #45 tabs for prn use a yearlast antidepres sants filled 06/2023, not well managed, d/w pt out of my scope to further treat, referred and then was to be managed by psych but she has stopped seeing this psych referred to in house [facility], needs this and otw he can determine if needs further rx with CBT via psychologi st f/u after appt with Kwabena Chand Chronic depression 65252 0009 F32.A see adry Posttrauma tic stress disorder 13645106 F43.10 I suspected this and referred to psych , no notes but pt states seen, did not benefit so never went back Panic disorder 777634889 F41.0 previous hx of chronic xanax from her lupus doctor whom she is no longer seeingnot seeing any rheumatolo gist for her chronic joint pain see adry Noncomplia nce with treatment 0393628 Z91.199 pt told to f/u for BP and smoking cessation THEN make appt with me in regards to PE (separate appts recommende d as she is fairly complicate d) Multiple joint pain 3567 8005 M25.50 mainly right sided, not seeing rheumatolo gist bur due to her hx of lupus, d/w pt shouldshe self d/[facility] ago Systemic l upus erythematosus 64592141 M32.9 not seeing rheumatolo gist bur due to her hx of lupus, d/w pt shouldshe self d/[facility] long ago [id number] Chichi Grimes MD [address] [place] [address] 05/05/2024 10:48:23 05/06/2024 13:45:40 Essential hypertension 51008701 I10 was on valsartan 160 mg- hctz 25 mg which she subj never got her to goal but she was never fully complianth ome BPs were running 140/90s on and off med 025 olmesartan -hctz 20-12.5 mg started , repeat in 4 weeks and inc dose as tolerated, has appt with me Generalize d anxiety disorder 17050693 F41.1 plan in . Generalize d anxiety disorder with panic attacks , Depression , ADHD, PTSD--bett er due to not working, focusing on self care-- more anxiety than depression per psych eval, also determined she has combined ADHDPLAN :--has not connected with [employer] to do so--has appt she thinks with psych based on my referral on 01/05/23, told to keep this--we should have sent neuropsych eval with referral but the recs on this eval were1) change celexa to another med such as trintillex /rexulti --she is open to this as long as does not have significan t 2ndary weight gain2) eventually drop the wellbutrin as one med will likely be enough3) treat ADHD with stimulant only once ADRY controlled as concern for worsening her ADRY with initial stimulant use4) nonpharmac ological options were reviewed with pt at that eval , has not implemente d them but doing some 04/2024not seen or treated since 12/2022--x anax reviewed but only prn and only #45 tabs for prn use a year--last antidepres sants filled 06/2023, not well managed, d/w pt out of my scope to further treat, referred and then was to be managed by psych but she has stopped seeing this psych signed ALESSIA so I may rev their records--r eferred to in house Kwabena Chand, needs this and otw he can determine if needs further rx with CBT via psychologi st--f/u after appt with Kwabena Chand MSCW--will make appt, has not yet as of 05/05/24 (stopped buproprion 450 mg , citalpram 40 mg, continues trazodone for sleep) Panic disorder 497077964 F41.0 previous hx of chronic xanax from her lupus doctor whom she is no longer seeingnot seeing any rheumatolo gist for her chronic joint pain see ADRY Chronic depression 44878 0009 F32.A see ADRY, but pt states depression is not her concern, thinks she may have a mood disorder.. . but was not dx with this in the brief time she did see psych in 2023, and she has no abrahan that she recalls... Noncomplia nce with treatment 0933059 Z91.199 pt told to f/u for BP and smoking cessation THEN make appt with me in regards to PE (separate appts recommende d as she is fairly complicate d) Multiple joint pain 3567 8005 M25.50 mainly right sided, not seeing rheumatolo gist bur due to her hx of lupus, d/w pt should however she feels it is not severe enought to see rheum and start rx, general feels oaky the joint pain is variablesh e self d/[facility] long ago Systemic l upus erythematosus 91237244 M32.9 not seeing rheumatolo gist bur due to her hx of lupus, d/w pt shouldshe self d/[facility] long [facility] Tobacco de pendence caused by cigarettes [id number] 8286714 F17.210 not at stage to quittoo much stress and anxiety in her lifewas on chantix in the past Screening procedure 2012 5006 Z13.9 routine labs as completing her htn labs [id number] Chichi Grimes MD [address] [place] [address] 05/08/2024 14:58:47 05/09/2024 09:40:22 Essential hypertension 19345016 I10 was on valsartan 160 mg- hctz 25 mg which she subj never got her to goal but she was never fully complianth ome BPs were running 140/90s on and off meds3/24/2 025 olmesartan -hctz 20-12.5 mg started , repeat in 4 weeks and inc dose as tolerated, has appt with me; has f.u with me in 05/25/24 for BP check --likely plan maximize olmesartan -hctz and add amlodipine for furhter control 04/2024has unc htn due to noncomplia nce with rxhas hld , consider statin as has RF for CVD: htn, hld, microalbum inuria, post menopause, smokerrec quit smoking Hyperlipidemia 47929966 E78.5 04/2024 T 215 G 83 H 60L 140 ascvd 9.3%start vs hold off on statin 04/2024has unc htn due to noncomplia nce with rxhas hld , consider statin as has RF for CVD: htn, hld, microalbum inuria, post menopause, smokerrec quit smoking Liver enzy mes level above reference range 223056859 R74.01 04/2024 CMP normal Fts Microalbuminuria 1889386 06 R80.9 need to improve BP controlhas appt in 4 weeks to maximize her medswas also on amlodipine in past 04/2024 current meds olmesartan -hctz 20-12.5 mg ---> plan to inc to 20-25 mg and then add amlodipine if renal fct remains stable at 05/2024 visit Hemoglobin above reference range 462640273 R71.8 ferritin and fe panel added AND normal likely 2/.2 smoking and plan to start cessation in the nexgt 1-3 months05/01 25 CBC h/h 17.0/53 Hematocrit above reference range 086124014 R71.8 ferritin and fe panel added AND normal likely 2/.2 smoking and plan to start cessation in the nexgt 1-3 months05/01 25 CBC h/h 17.0/53 Contracept ion care management 687170824 Z30.9 on IUD see menorrhagi a Menorrhagia 455539110 N9 2.0 on IUD for heavy cycles, was supposed to have it out last year or before, but never followed up with gynecology , d/w pt to return for removal, likely in menopause. .. would only check FSH LH for uncertain in menopause. .. will jennifer appt for IUD removal after 05/2024 f/ushe did get hot flashes at some point in the last year resolved, so possible this indicates she is post menopaus otw check labs after IUD removal --fsh/lh Tobacco de pendence caused by cigarettes [id number] 0130195 F17.210 not at stage to quittoo much stress and anxiety in her lifewas on chantix in the past 04/2024has unc htn due to non-compli ance with rxhas hld , consider statin as has RF for CVD: htn, hld, microalbum inuria, post menopause, smokerrec quit smoking Dyspnea at rest 01477815 7 R06.00 noted 04/2024 for 1-2 weeks when up in the am then resolved after her caffeine? anxiety, ? BP related, she will check BP in the am before and after her BP medshoweve r as resolves and recurs in the am.. w/o other symptoms of CHF or lung dz... okay to monitor. Health Concerns Section Related Observation LastModified by Organization Detai ls LastModified Time None Recorded Concern Status LastModified by Organization Details LastModified Time None Recorded Advance Directives Directive None Recorded Payers Encounter Date Sequence Insurance Name Policy Number Policy Ferguson Covered Member ID Ferguson Member ID Guarantor Name 11/12/2023 1 [facility] [id number] Christopher S Semar [id number] Doreen Semar 04/23/2024 1 [facility] [id number] Christopher S Semar [id number] Doreen Semar 05/05/2024 1 [facility] [id number] Christopher S Semar [id number] Doreen Semar 05/08/2024 1 [facility] [id number] Christopher S Semar [id number] Doreen Semar Notes Date Note Type Note Provider Name and Address Organization Details Recorded Time 4 text/html VIRTUAL VISIT Name: Beverley Tesfayekarlene ZARCO verified Means of contact: {{telephone* video}} poor connection Patient Location: {{[place]* [place]}} Provider Location: [address] [place] [address] Disclaimer read: While we make every effort at maintaining confidentiality, we are using telephone or [place] based telehealth video and relying on this platform to protect your privacy. Should you be deemed not appropriate for telemedicine assessment and treatment at any point in the visit you will be referred to a provider for a face to face encounter. Verbal Consent Obtained: YES Patient Appropriate for telehealth visit: YES AWARE SHE HAS NOT BEEN SEEN IN A WHILEHAVING SAME FLARE UP ON HER RIGHT AXILLA, MILD , RED AND TENDER, NOT DRAININGHAS ON LARGE AND ON SMALL GOING ON FOR 2 DAYS AND WANTS Chichi Grimes MD [address], [place], [address], [place] [facility] 11/12/2023 15:39:53 5 text/html VIRTUAL VISIT Name: Doreen Bennett verified Means of contact: {{telephone video*}} Patient Location: {{[place]}}Pro vider Location: [address] [place] [address] Disclaimer read: While we make every effort at maintaining confidentiality, we are using telephone or [place] based telehealth video and relying on this platform to protect your privacy. Should you be deemed not appropriate for telemedicine assessment and treatment at any point in the visit you will be referred to a provider for a face to face encounter. Verbal Consent Obtained: YESPatient Appropriate for telehealth visit: YES not seen in over a year 3 months with the exception of a Video Visit as requesting abx for her Hidraadenitis, no PE In 2 years, pt has a complicated psych history, not well treated, I was unable to treat her successfully, asked her to see psych and states she did but did not like this psychiatrist tried to put her on more meds and has seen psych all her life and that is all they do.. .she is not currently in counseling, and also has not pursued counseling despite my referrals in the past. Visit for the following:pt's concerned for her anxiety and asked her to make appt with me to review anxiety and consideration of xanax pt states that her anxiety is partly due to him (his hx of alcoholism and to that for years plus the hx of drug addiction of daughter's) ongoing stress now due to loss of petoldest and youngest children , come and go and the oldest one had airforce injury moved into the house but this child does not get along with father who refused to stay at home while child was at home, this child left before 2023youngest is a drug addict, was in rehab... 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 Linwood gets the xanax from a friend of his... was on 90 a month but previous doctor cut her off ---long time ago years ago and since then farzad --she has been taking the 1 mg ones 1/4 to 1/2 pill 2 times a week. reiterates went to see psych again and they have never helped me...her lupus dr is the one who gave her xanax not psych no HI, SI, just crying all the time and high anxiety with panic attacks 1-2 times a week... Chichi Grimes MD [address], [place], [address], [place] - [facility] 04/23/2024 15:54:39 5 text/html here for encouraged BP f/unon-compliance with f/u and medslast time took meds was 10/2023 bu last refill was 02/2023 90 days which she spread out until now...she thinks she also had xtra left over but anyway.. her anxiety depression stressful family life got the better of her and so just let her health go she is aware appt for today is for her blood pressureshe generally feels like crap but at the same time attributes it all to her current state of stress and perpetual stress/anxiety everything hurts but not enough to start seeing saddle stitcher again, feels in regards to lupus she is stable, does not have any classic symptoms and does not want to take lupus meds for minor aches and pains she recurrently states she is not depressed, no HI, no SI, more anxiety than anythingstopped seeing psych and stopped taking all meds is supportive and not supportive, based on the state of his alcoholism--she states he is alcoholic and dealing with his own issues and his own family mother.. she is angry all the time and needs help with this,still worries about her drug addicted child/daughter and reconnects with her when she needs to let go and let her child/daughter come to terms with her addiction and aware she cannot help her until she is ready to help herself Chichi Grimes MD [address], [place], [address], [place] - [facility] 05/05/2024 13:45:47 5 text/html VIRTUAL VISIT Name: Doreen Bennett verified Means of contact: {{telephone* video}} Patient Location: {{[place]* [place]}}Pro vider Location: [address] [place] [address] Disclaimer read: While we make every effort at maintaining confidentiality, we are using telephone or [place] based telehealth video and relying on this platform to protect your privacy. Should you be deemed not appropriate for telemedicine assessment and treatment at any point in the visit you will be referred to a provider for a face to face encounter. Verbal Consent Obtained: YESPatient Appropriate for telehealth visit: YES visit to review labs and make changes based on these labs but mentions that wanted to run this by me as forgot to tell me last visit1-2 weeks of getting up with SOB in the am not assc with start of BP med Chichi Grimes MD [address], [place], [address], [place] - [facility] 05/08/2024 16:09:37 OBGyn Episode No OBEpisode recorded.
--- OUTSIDE RECORDS SUMMARY | 2024-05-17 16:27 | XMS_ITS | Clinical Summary ---
Author Organization [facility] [address] [facility] Address [address] [place] [address] Care Team Providers Care Texture Artist Name Role Phone Yoanna Grimes MD Primary Care Provider Allergies Active Allergy Reactions Criticality Noted Date Comments Ciprofloxacin Ciprofloxacin Unknown 06/06/2018 Lamotrigine Rash Medium 06/06/2018 Medications HYDROcodone-acet aminophen (NORCO) 5-325 mg per tablet TK 1 T PO Q 8 H PRF PAIN 0 Active naltrexone (DEPADE) 50 mg tablet TAKE 1 TABLET BY MOUTH DAILY 30 tablet 5 1 Active Additional Information Patient not taking.Reported on 08/25/2022 ibuprofen (ADVIL,MOTRIN) 800 mg tabletIndication s:Rib injury TAKE 1 TABLET(800 MG) BY MOUTH THREE TIMES DAILY NEEDED FOR PAIN 90 tablet 3 1 Active traZODone (DESYREL) 100 mg tablet TAKE 1/2 (ONE-HALF) TABLET BY MOUTH ONCE DAILY AT BEDTIME 45 tablet 11 1 Active citalopram (CeleXA) 40 mg tablet Take 1 tablet by mouth once daily 90 tablet 2 Active buPROPion XL (WELLBUTRIN XL) 150 mg 24 hr tablet Take 1 tablet (150 mg total) by mouth every morning 90 tablet 3 2 Active buPROPion XL (WELLBUTRIN XL) 300 mg 24 hr tablet Take 1 tablet (300 mg total) by mouth every morning 90 tablet 3 2 Active amLODIPine (NORVASC) 5 mg tabletIndication s:Essential hypertension Take 1 tablet by mouth once daily 90 tablet [address] (VOLTAREN) 75 mg EC tablet TAKE 1 TABLET BY MOUTH THREE TIMES DAILY 90 tablet 2 Active clonazePAM (KlonoPIN) 0.5 mg tablet Take 1 tablet (0.5 mg total) by mouth as needed 3 Active busPIRone (BUSPAR) 10 mg tablet Take 1 tablet (10 mg total) by mouth as needed 3 Active diclofenac sodium (VOLTAREN) 1 % gel Apply 2 g topically as needed Active valsartan-hydroc hlorothiazide (DIOVAN-HCT) 160-25 mg per tabletIndication s:Essential hypertension Take 1 tablet by mouth once daily 30 tablet 3 Active ARIPiprazole (ABILIFY) 2 mg tablet Take 1 tablet (2 mg total) by mouth daily 3 Active nicotine (NICODERM CQ) 14 mg APPLY 1 PATCH TOPICALLY ONCE DAILY (START AFTER 21MG PATCH) 4 Active Active Problems Problem Noted Date Diagnosed Date Bipolar depression 02/24/2020 Numbness and tingling in both hands 02/24/2020 Other fatigue 06/08/2018 Assessment & Plan (06/09/2018 12:01 AM CDT): Probably multifactorial. Check labs and followup to re-evaluate Will refer for sleep evaluation. Sleep walking and eating 06/08/2018 Assessment & Plan (06/09/2018 12:04 AM CDT): Pt states she has MEGHAN but hasn't used CPAP. She has also noted increased sleep walking/eating. Refer to Sleep lab for further evaluation Obesity (BMI 30-39.9) 06/06/2018 Assessment & Plan (06/16/2019 12:15 PM CDT): BMI Follow-up includes: education provided. Assessment & Plan (06/06/2018 2:19 PM CDT): BMI Follow-up includes: Discussed diet and exercising counseling. Essential hypertension 06/05/2018 Alcoholism in recovery 06/05/2018 Overview (06/05/2018): 12/2017 [facility] for rehab Assessment & Plan (06/09/2018 12:00 AM CDT): Doing well. Continue per Addiction Specailist. 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 She wants to work on the other concerns first. IUD (intrauterine device) in place 06/05/2018 Immunizations Immunization Administration Dates Next Due Influenza, Quadrivalent, Spl it, Preservative Free, Intramuscular 01/21/2018 Tdap 01/21/2018 Surgical History Surgery Date Site/Laterality Comments TUBAL LIGATION CHOLECYSTECTOMY Medical History Medical History Date Comments Anxiety Family History Medical History Relation Name Comments COPD Father Hypertension Father Lung cancer Father Lung cancer Mother Relation Name Status Comments Father Mother Social History Tobacco Use Types Packs/Day Years Used Date Smoking Tobacco: Former Cigarettes 1 20 Smokeless Tobacco: Never Tobacco Cessation:Counseling Given: Not Answered Alcohol Use Standard Drinks/Week Comments Not Currently 0 (1 standard drink = 0.6 oz pur e alcohol) PHQ-2 Answer Date Recorded PHQ-2 Total Score 4 06/16/2019 Personal Safety Answer Date Recorded Getting School Help Needed Not on file 04/11 Comments Unknown Sex and Gender Information Value Date Recorded Sex Assigned at Not on file Legal Sex Female 11:10 PM CONCRETE 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 Gender Identity Female 06/16/2019 9:01 AM CDT Sexual Orientation Straight 06/16/2019 9: 02 AM CDT Obstetrics History Last Filed Vital Signs Vital Sign Reading Time Taken Comments Blood Pressure 160/110 02/24/2020 11:30 AM CONCRETE 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 Pulse 102 02/24/2020 11:30 AM CONCRETE 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 Temperature 36.8 C (98.3 F) 02/24/2020 11:30 AM CONCRETE 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 Respiratory Rate 18 02/24/2020 11:30 AM CONCRETE 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 Oxygen Saturation 97% 02/24/2020 11:30 AM CONCRETE 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 Inhaled Oxygen Concentration - - Weight 86.2 kg (190 lb) 02/24/2020 11:30 AM CONCRETE 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 Height 165.1 cm (5' 5 ) 02/24/2020 11:30 AM CONCRETE 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 Body Mass Index 31.62 02/24/2020 11:30 AM CONCRETE 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 Plan of Treatment Health Maintenance Due Date Last Done Comments Cervical Cancer Screening 1970 Colon Cancer Screening-Colonoscopy 1970 Hepatitis C Screening 1970 Hepatitis B Screening 1988 Regular Well Visit/Exam 18-64 1988 Zoster Vaccine (1 of 2) 2020 Depression Screening 06/15/2020 06/16/2019, 06/06/2018 Breast Cancer Screening-Mammogram 10/19/2022 10/19/2021 Covid-19 Vaccine (3 - 2023-2 5 season) 2023 07/29/2020, 07/01/2020 Influenza Vaccine (#1) 2023 01/21/2018 DTaP/Tdap/Td Vaccine (2 - Td or Tdap) 01/22/2028 01/21/2018 Pneumococcal vaccine <65 Aged Out No longer eligible based on patient's age to complete this topic Procedures Procedure Name Priority Date/Time Associated Diagnosis Comments SCREENING MAMMOGRAM BILATERAL W MELBA Schedule Routine, Read Routine (OP Routine) 10/19/2021 3:23 PM CDT Screening mammogram, encounter for from Last 3 Months or Most Recently Relevant to Health Maintenance Results * Screening Mammogram Bilateral W Melba (10/19/2021 3:23 PM CDT) Anatomical Region Laterality Modality Breast Bilateral Mammography Narrative 10/20/2021 10:11 AM CDT Mammogram Technique: Bilateral Digital Breast Tomosynthesis, Bilateral C-view 2D Screening mammogram. Views obtained: bilateral craniocaudal and bilateral mediolateral oblique. Computer Aided Detection was performed. Mammogram Findings: This is a baseline study. There are scattered areas of fibroglandular density. There is no suspicious abnormality in either breast. Impression: There is no mammographic evidence of malignancy. Annual screening mammography is recommended. OVERALL FINAL ASSESSMENT: BI-RADS CATEGORY 1: Negative. Procedure Note Gay Roman MD - 10/20/2021 Mammogram Technique: Bilateral Digital Breast Tomosynthesis, Bilateral C-view 2D Screening mammogram. Views obtained: bilateral craniocaudal and bilateral mediolateral oblique. Computer Aided Detection was performed. Mammogram Findings: This is a baseline study. There are scattered areas of fibroglandular density. There is no suspicious abnormality in either breast. Impression: There is no mammographic evidence of malignancy. Annual screening mammography is recommended. OVERALL FINAL ASSESSMENT: BI-RADS CATEGORY 1: Negative. us Self Screening Mammogram IMG MAMMO PROCEDURES Fi nal Result from Last 3 Months or Most Recently Relevant to Health Maintenance Insurance [facility] [place] [address] [address] [facility] [place] [address] Care Teams Texture Artist Relationship Specialty Start Date End Date Yoanna Grimes MD PCP - General Family Medicine 01/19/23
--- OUTSIDE RECORDS SUMMARY | 2024-05-17 16:27 | XMS_ITS | Patient Health Record ---
Author Organization [facility] Address [address] [place] [address] Care Team Providers Care Valve Tester Name Role Phone Mary Lamb Primary Care Provider [phone] Allergies Allergen (clinical drug ingredient) Drug/Non Drug Allergy documented on EMR Reaction Allergy Type Onset Date Status ciprofloxacin Cipro Unknown Drug Allergy Act jonathan lamotrigine Lamictal rash Drug Allergy Activ e Reason For Referral No Information Medications Medication SIG (Take, Route, Fr equency, Duration) Notes Start Date End Date Status CeleXA 40 MG 1 tablet Orally Once a day for 30 Active Wellbutrin XL 300 MG 1 tablet in the mor olesya Orally Once a day for 30 Active traZODone HCl 150 MG 1 tablet at bedtime Orally Once a day for 30 Active Social History Tobacco Use: Social History Observation Description Date Details (start date - stop date) Former Smoker NA - NA Dont use, Tobacco Use/Smoking Question Answer Notes Are you a former smoker How long has it been since you last smoked? 3-6 months Alcohol Screen (Audit-C) Question Answer Notes Did you have a drink contain ing alcohol in the past year? Yes How often did you have a dri nk containing alcohol in the past year? 4 or more times a week (4 points) How many drinks did you have on a typical day when you were drinking in the past year? 5 or 6 drinks (2 points) How often did you have 6 or more drinks on one occasion in the past year? Weekly (3 points) Points 9 Interpretation Positive PRAPARE Question Answer Notes What is your current housing situation? I have h ousing Are you worried about losing your housing? No What is the highest level of school that you have finished? More than high school What is your current work situation? Oth erwise unemployed but not seeking work (ex. 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 Check all that apply Medicine or any health care (medical, dental, mental health or vision) Has lack of transportation k ept you from medical appointments, meetings, work or from getting things needed for daily living? No How often do you see or talk to people that you care about and feel close to? (For example: talking to friends on the phone, visiting friends or family, going to advent or club meetings) More than 5 times a week How stressed are you? Stress is when someone feels tense, nervous, anxious, or can\t sleep at night because their mind is troubled Very much In the past year have you sp ent more than 2 nights in a row in a intermediate, half-way, intermediate center, or juvenile correctional facility? Yes What was your release date? 07/09/2017 Are you a refugee? No What country are you from? [place] Do you feel physically and e motionally safe where you currently live? Yes In the past year, have you b een afraid of your partner or ex-partner? No PRAPARE Score: 6 Section Notes: Problems Problem Type SNOMED Code ICD Code Onset Dates Problem Status W/U Status Risk Notes Problem Mood disorder (87584055) Mood disorder (F39) Active confirmed Problem Anxiety (12454495) Anxiety (F41.9) Active confirmed Problem Alcohol dependence (23444022) Alcohol use disorder, severe, dependence (F10.20) Active confirmed Problem Obesity (847069739) Obesity, unspecified classification, unspecified obesity type, unspecified whether serious comorbidity present (E66.9) Active confirmed Plan Of Treatment No Information Medications Administered Medication Instructions Date of Administration Dosage Notes Vivitrol 09/28/2017 380 mg Pt tolerated w ell. Sample given. Vivitrol 10/22/2017 380 mg Vivitrol 01/23/2018 380 mg Parcel Contractor A lkermes. Pt tolerated well. Voiced no questions or concerns at present time. Vivitrol 02/18/2018 380 mg Parcel Contractor A lkermes. Pt tolerated well. Voiced no questions or concerns at present time. Vivitrol 03/18/2018 380 mg Manufact Alker mes, pt tolerated well. Vivitrol 04/18/2018 380 mg Manufact Magalyer mes, pt tolerated well. Vivitrol 05/21/2018 380 mg Exp June 2020 M anufact by Rajendra pt alem well. Vivitrol 06/19/2018 380 mg Parcel Contractor: Rajendra Pt tolerated the injection well. She denies questions or concerns at this time. Vivitrol 08/21/2018 380 mg Parcel Contractor: Mina Pt tolerated well. Denies questions or concerns. Vivitrol 12/17/2018 380 mg Parcel Contractor: Crowdvancepedro Pt tolerated well. Denies questions or concerns. Vivitrol 01/16/2019 380 mg Manufact Truman price pt tolerated well. Medical (General) History Surgical History Surgery Date(Month/Year) gallbladder removal 1988 1993 Hospitalization History Reason Date(Month/Year) fever after giving 1988
--- OUTSIDE RECORDS SUMMARY | 2024-05-17 16:27 | XMS_ITS | Referral Summary ---
Author Organization [facility] [address] [facility] Address [address] [place] [address] Care Team Providers Care Laboratory Inspector Name Role Phone Yoanna Grimes MD Primary [...] Alcoholism in recovery 06/05/2018 Overview (06/05/2018): 12/2017 [facility] for rehab Assessment & Plan (06/09/2018 12:00 AM CDT): Doing well. Continue per Addiction Specailist. Moderate episode of recurrent major depressive d isorder 06/05/2018 SNEHAL (stress urinary incontinence, female) 2018 Assessment & Plan (06/09/2018 12:00 AM CDT): Plans to followup with OUTSOLE ROUNDER at her convience. She wants to work on the other concerns first. IUD (intrauterine device) in place 06/05/2018 Immunizations Immunization Administration Dates Next Due Influenza, Quadrivalent, Spl it, Preservative Free, Intramuscular 01/21/2018 Tdap 01/21/2018 Social History Tobacco Use Types Packs/Day Years [...] on file Legal Sex Female 11:10 PM SNOW BLOWER Gender Identity Female 06/16/2019 9:01 AM CDT Sexual Orientation Straight 06/16/2019 9: 02 AM CDT Last Filed Vital Signs Vital Sign Reading Time Taken Comments Blood Pressure 160/110 02/24/2020 11:30 AM SNOW BLOWER Pulse 102 02/24/2020 11:30 AM SNOW BLOWER Temperature 36.8 C (98.3 F) 02/24/2020 11:30 AM SNOW BLOWER Respiratory Rate 18 02/24/2020 11:30 AM SNOW BLOWER Oxygen Saturation 97% 02/24/2020 11:30 AM SNOW BLOWER Inhaled Oxygen Concentration - - Weight 86.2 kg (190 lb) 02/24/2020 11:30 AM SNOW BLOWER Height 165.1 cm (5' 5 ) 02/24/2020 11:30 AM SNOW BLOWER Body Mass Index 31.62 02/24/2020 11:30 AM SNOW BLOWER Plan of Treatment Not on file Procedures Procedure Name Priority Date/Time Associated Diagnosis Comments SCREENING MAMMOGRAM BILATERAL W VALDEZ Schedule Routine, Read Routine (OP Routine) 10/19/2021 3:23 PM CDT Screening mammogram, encounter for from Last 3 Months or Most Recently Relevant to Health Maintenance Results * Screening Mammogram Bilateral W Valdez (10/19/2021 3:23 PM CDT) Anatomical Region Laterality [...] Most Recently Relevant to Health Maintenance Insurance [employer] [facility]/PPO Address: [address] [address] [place] [address] Care Teams Laboratory Inspector Relationship Specialty Start Date End Date Yoanna Grimes MD PCP - General Family Medicine 01/19/23
--- NOTE | 2024-05-17 16:30 | ECG_ITS ---
Test Date: 2024-05-17 16:37:33 Measurements Intervals [place] Rate: 100 P: 46 VA: 138 QRS: -25 QRSD: 101 T: 144 QT: 349 QTc: 452 Interpretive Statements SINUS TACHYCARDIA POSSIBLE RIGHT ATRIAL ENLARGEMENT LEFT ATRIAL ENLARGEMENT LEFT VENTRICULAR HYPERTROPHY WITH ST-T CHANGE CONSIDER INFERIOR INFARCT, AGE INDETERMINATE MODERATE T-WAVE ABNORMALITY, CONSIDER LATERAL ISCHEMIA ABNORMAL ECG No previous ECG available for comparison Electronically Signed On 05-17-2024 18:27:26 CDT by Maulik Alexandra D.O.
[2024-05-17 16:59] LABS: Basophils Absolute Auto 0.1 K/mm3 (0.0-0.1); Basophils Percent Auto 0.9 % (0.2-1.2); Eosinophils Absolute Auto 0.1 K/mm3 (0-0.3); Eosinophils Percent Auto 1.6 % (0-4.4); Hematocrit 49.9 % (37.0-47.0); Hemoglobin 16.2 g/dL (12.0-15.0); Immature Granulocyte Absolute 0.01 K/mm3 (0.00-0.031); Immature Granulocyte Percent A 0.1 % (0-0.5); Lymphocytes Absolute Auto 3.28 K/mm3 (0.9-3.2); Mean Corpuscular HGB Conc 32.5 g/dl (32-36); Mean Corpuscular Hemoglobin 32.5 pg (26-34); Mean Corpuscular Volume 100.2 fl (80-100); Mean Platelet Volume 9.5 fl (7.4-10.4); Monocytes Absolute Auto 0.6 K/mm3 (0.1-0.6); Monocytes Percent Auto 8.7 % (2.6-8.5); Neutrophils Absolute Auto 2.7 K/mm3 (1.3-6.7); Neutrophils Percent Auto 39.7 % (45.5-73.1); Platelet Count Result 260 k/mm3 (150-375); Red Blood Count 4.98 M/mm3 (4.2-5.4); Red Cell Distribution Width 13.3 % (11.5-14.5); White Blood Count 6.7 K/mm3 (4.5-10.0)
[2024-05-17 17:08] LABS: Prothrombin Time 13.3 Seconds (11.1-14.7)
[2024-05-17 17:09] LABS: Partial Thromboplastin Time 27.9 Seconds (22.3-36.8)
[2024-05-17 17:14] LABS: Alanine Aminotransferase 21 U/L (6-35); Albumin Level 4.5 g/dL (3.5-5.1); Alkaline Phosphatase 83 U/L (38-126); Anion Gap 9 mmol/L (4-12); Aspartate Amino Transferase 26 U/L (14-36); Bilirubin,Total 0.7 mg/dL (0.2-1.3); Blood Urea Nitrogen 14 mg/dL (7-17); Carbon Dioxide 29 mmol/L (22-30); Chloride 104 mmol/L (98-107); Estimated CRCL calculation 65 ml/min; Estimated Glomerular Filt Rate > 60; Glucose 94 mg/dL (65-110); Lipase 157 U/L (23-300); Sodium 142 mmol/L (137-145)
[2024-05-17 17:32] LABS: Troponin I 0.048 ng/mL (0.000-0.034)
--- NOTE | 2024-05-17 17:39 | ED_ITS ---
HPI - Recheck/Abnormal Lab/Rx General Chief Complaint: Recheck/Abnormal Lab/Rx Stated Complaint: htn Time Seen by Provider: 05/17/24 17:26 Source: patient Mode of arrival: ambulatory Limitations: clinical condition History of Present Illness HPI narrative: This is a 54-year-old female with PMH of HTN, MEGHAN, alcohol abuse, agoraphobia, depression who presents to the ED for chief complaint of elevated blood pressure. Patient states that she has been under a lot of stress recently. History is somewhat limited as patient is very somnolent on exam. She is stating that she has had headache, chest pain, shortness of breath and cough. States that the cough has been productive. Concerned over her blood pressure being in the 160s systolic. States that she was seen at her PCP is set to go to the ER. Patient is poor historian overall due to level of somnolence. She is denying alcohol use or drug use. Related Data Home Medications ?Medication ?Instructions ?Recorded ?Confirmed ?Last Taken ?Type amlodipine 5 mg tablet (Norvasc) 5 mg PO DAILY 04/24/19 Unknown History buspirone 5 mg tablet 5 mg PO TID 04/24/19 Unknown History citalopram 40 mg tablet (Celexa) 40 mg PO DAILY 04/24/19 Unknown History Allergies Allergy/AdvReac Type Severity Reaction Status Date / Time ofloxacin Allergy Mild RASH Verified 09/18/18 11:14 ciprofloxacin Allergy Unknown Verified 04/09/12 08:11 Sulfa (Sulfonamide Allergy Unknown Verified 05/01/18 08:17 Antibiotics) Review of Systems 2 Review of Systems: Limited due to clinical condition [facility] Past Medical History Medical History Agoraphobia with panic disorder Alcohol abuse Severe obstructive sleep apnea Family History Family History Father Family history of lung cancer Hypertension Family history of chronic obstructive pulmonary disease Mother Family history of lung cancer Social History Social History (Updated 12/26/19 @ 16:14 by Nathaly Bravo PA-C) Smoking status: Former smoker Smoking end date: 02/12/17 Alcohol intake: never Substance use: never Living arrangements: with family Exam 2 Narrative: GENERAL: Patient is somnolent. Easily roused, however will fall asleep during exam. HEAD: Normocephalic, atraumatic. EYES: PERRLA and EOMI. ENT: Nares clear, no rhinorrhea or epistaxis. Mucous membranes moist. Oropharynx without tonsillar hypertrophy exudate or other lesions. NECK: Supple. No adenopathy or masses. CHEST: No respiratory distress. Clear to auscultation. No wheezes rales or rhonchi HEART: Regular rate and rhythm. No murmur heard. Normal peripheral pulses. ABDOMEN: Soft, nontender, nondistended, normal active bowel sounds. MSK: Normal range of motion. No edema. SKIN: Warm, dry, no rash. NEURO: Alert and oriented x4. No focal deficits. PSYCH: Normal mood and affect. Course Vital Signs Vital signs: Vital Signs Pulse Rate 115 H 05/17/24 16:26 Respiratory Rate 20 05/17/24 16:26 Blood Pressure 168/90 H 05/17/24 16:26 Pulse Oximetry 98 05/17/24 16:26 Oxygen Delivery Room Air 05/17/24 16:26 Temperature 97.7 F 05/17/24 22:00 Pulse Rate 97 05/17/24 22:00 Respiratory Rate 18 05/17/24 22:00 Blood Pressure 147/83 H 05/17/24 22:00 Pulse Oximetry 98 05/17/24 22:00 Oxygen Delivery Room Air 05/17/24 16:26 MDM - Recheck/Abnormal Lab/Rx MDM Narrative Medical decision making narrative: This is a 54-year-old female who presents to the ED for chief complaint of dyspnea and productive cough. Vitals show elevated blood pressure and heart rate on arrival. Otherwise vitals are normal. She is not in respiratory distress and saturating well on room air. Lab work remarkable for elevated troponin at 0.048. 3 hour troponin slightly downtrending at 0.046. BNP slightly elevated at 1770. D-dimer is negative. Urine drug screen positive for amphetamines and benzodiazepines. Viral swabs negative. Chest x-ray: IMPRESSION: Cardiomegaly with pulmonary vascular congestion. Subsegmental basilar atelectasis/consolidation With patient's complaints of productive cough and above findings of possible consolidation, was started on community-acquired antibiotics for potential pneumonia. It is also possible that she is having some heart failure related shortness of breath with the elevated BNP and troponin. The troponin does not appear consistent with ACS as she has no chest pain. Discussed with the hospitalist who will admit the patient for pneumonia treatment hand further evaluation of this vascular congestion. Patient is understanding and agreeable with plan for admission at this time. Lab Data 05/17/24 16:53 05/17/24 16:53 Labs: Lab Results 05/17/24 05/17/24 05/17/24 Range/Units 16:52 16:53 18:29 WBC 6.7 (4.5-10.0) K/mm3 RBC 4.98 (4.2-5.4) M/mm3 Hgb 16.2 H (12.0-15.0) g/dL Hct 49.9 H (37.0-47.0) % MCV 100.2 H (80-100) fl MCH 32.5 (26-34) pg MCHC 32.5 (32-36) g/dl RDW 13.3 (11.5-14.5) % Plt Count 260 (150-375) k/mm3 MPV 9.5 (7.4-10.4) fl Immature Gran % (Auto) 0.1 (0-0.5) % Neut % (Auto) 39.7 L (45.5-73.1) % Lymph % (Auto) 49.0 H (18.3-44.2) % [place] % (Auto) 8.7 H (2.6-8.5) % Eos % (Auto) 1.6 (0-4.4) % Baso % (Auto) 0.9 (0.2-1.2) % Lymph # (Auto) 3.28 H (0.9-3.2) K/mm3 [place] # (Auto) 0.6 (0.1-0.6) K/mm3 Eos # (Auto) 0.1 (0-0.3) K/mm3 Baso # (Auto) 0.1 (0.0-0.1) K/mm3 Abs Immat Gran (auto) 0.01 (0.00-0.031) K/mm3 Absolute Neuts (auto) 2.7 (1.3-6.7) K/mm3 Absolute Nucleated RBC 0.000 (0.0-0.012) K/mm3 Nucleated RBC % 0.0 (0.0-0.2) % PT 13.3 (11.1-14.7) Seconds INR 1.0 APTT 27.9 (22.3-36.8) Seconds D-Dimer 0.40 (<0.48) ug/mL Sodium 142 (137-145) mmol/L Potassium 4.0 (3.4-5.0) mmol/L Chloride 104 (98-107) mmol/L Carbon Dioxide 29 (22-30) mmol/L Anion Gap 9 (4-12) mmol/L BUN 14 (7-17) mg/dL Creatinine 0.77 (0.7-1.0) mg/dL Estim Creat Clear Calc 65 ml/min Estimated GFR > 60 (59 - ) Glucose 94 (65-110) mg/dL Calcium 10.0 (8.4-10.2) mg/dL Total Bilirubin 0.7 (0.2-1.3) mg/dL AST 26 (14-36) U/L ALT 21 (6-35) U/L Alkaline Phosphatase 83 (38-126) U/L Troponin I 0.048 H* (0.000-0.034) ng/mL NT-Pro-B Natriuret Pep 1770 H (19.9-100) pg/mL Total Protein 8.0 (6.3-8.2) g/dL Albumin 4.5 (3.5-5.1) g/dL Lipase 157 (23-300) U/L TSH 2.020 (0.465-4.680) uIU/mL Urine Color Yellow (Yellow) Urine Appearance Clear (Clear) Urine pH 6.5 (5.0-9.0) Ur Specific [place] 1.010 (1.001-1.035) Urine Protein Trace (Negative) mg/dL Urine Glucose (UA) Negative (Negative) mg/dL Urine Ketones Negative (Negative) mg/dL Ur Blood (Man) Non-hemolyzed trace H (Negative) Urine Nitrate Negative (Negative) Urine Bilirubin Negative (Negative) Urine Urobilinogen 0.2 (<2.0) mg/dL Leukocyte Esterase Rfl Trace H (Negative) YANNICK/UL Urine RBC 6-10 H (0-2) /hpf Urine WBC 0-5 (0-3) /hpf Ur Squamous Epith Cells None seen (Few) /hpf Urine Bacteria None seen /hpf Urine Casts 0-2 Urine Opiates Screen Negative (Negative) Urine Methadone Screen Negative (Negative) Ur Barbiturates Screen Negative (Negative) Ur Phencyclidine Scrn Negative (Negative) Ur Amphetamine Screen Positive A (Negative) U Benzodiazepines Scrn Positive A (Negative) Urine Cocaine Screen Negative (Negative) U Cannabinoids Screen Negative (Negative) Ethyl Alcohol < 10 (<10) mg/dL 05/17/24 Range/Units 19:34 WBC (4.5-10.0) K/mm3 RBC (4.2-5.4) M/mm3 Hgb (12.0-15.0) g/dL Hct (37.0-47.0) % MCV (80-100) fl MCH (26-34) pg MCHC (32-36) g/dl RDW (11.5-14.5) % Plt Count (150-375) k/mm3 MPV (7.4-10.4) fl Immature Gran % (Auto) (0-0.5) % Neut % (Auto) (45.5-73.1) % Lymph % (Auto) (18.3-44.2) % [place] % (Auto) (2.6-8.5) % Eos % (Auto) (0-4.4) % Baso % (Auto) (0.2-1.2) % Lymph # (Auto) (0.9-3.2) K/mm3 [place] # (Auto) (0.1-0.6) K/mm3 Eos # (Auto) (0-0.3) K/mm3 Baso # (Auto) (0.0-0.1) K/mm3 Abs Immat Gran (auto) (0.00-0.031) K/mm3 Absolute Neuts (auto) (1.3-6.7) K/mm3 Absolute Nucleated RBC (0.0-0.012) K/mm3 Nucleated RBC % (0.0-0.2) % PT (11.1-14.7) Seconds INR APTT (22.3-36.8) Seconds D-Dimer (<0.48) ug/mL Sodium (137-145) mmol/L Potassium (3.4-5.0) mmol/L Chloride (98-107) mmol/L Carbon Dioxide (22-30) mmol/L Anion Gap (4-12) mmol/L BUN (7-17) mg/dL Creatinine (0.7-1.0) mg/dL Estim Creat Clear Calc ml/min Estimated GFR (59 - ) Glucose (65-110) mg/dL Calcium (8.4-10.2) mg/dL Total Bilirubin (0.2-1.3) mg/dL AST (14-36) U/L ALT (6-35) U/L Alkaline Phosphatase (38-126) U/L Troponin I 0.046 H* (0.000-0.034) ng/mL NT-Pro-B Natriuret Pep (19.9-100) pg/mL Total Protein (6.3-8.2) g/dL Albumin (3.5-5.1) g/dL Lipase (23-300) U/L TSH (0.465-4.680) uIU/mL Urine Color (Yellow) Urine Appearance (Clear) Urine pH (5.0-9.0) Ur Specific [place] (1.001-1.035) Urine Protein (Negative) mg/dL Urine Glucose (UA) (Negative) mg/dL Urine Ketones (Negative) mg/dL Ur Blood (Man) (Negative) Urine Nitrate (Negative) Urine Bilirubin (Negative) Urine Urobilinogen (<2.0) mg/dL Leukocyte Esterase Rfl (Negative) YANNICK/UL Urine RBC (0-2) /hpf Urine WBC (0-3) /hpf Ur Squamous Epith Cells (Few) /hpf Urine Bacteria /hpf Urine Casts Urine Opiates Screen (Negative) Urine Methadone Screen (Negative) Ur Barbiturates Screen (Negative) Ur Phencyclidine Scrn (Negative) Ur Amphetamine Screen (Negative) U Benzodiazepines Scrn (Negative) Urine Cocaine Screen (Negative) U Cannabinoids Screen (Negative) Ethyl Alcohol (<10) mg/dL ABG Data ABG results: 05/17/24 17:50 Puncture Site Right radial ABG pH 7.410 ABG pCO2 34.3 L ABG pO2 73.0 L ABG PO2/FiO2 Ratio 3.48 ABG HCO3 21.3 L ABG O2 Saturation 95.0 ABG O2 Content 20.3 ABG Base Excess -2.5 A-a Gradient 35.7 Oxyhemoglobin 89.6 L Total Hemoglobin 16.1 O2 Delivery Device Room air O2 Liters/Min Not Reportable FiO2 21 Discharge Plan Discharge Clinical Impression: Cough, Elevated troponin, Acute dyspnea Patient Disposition: Still a Patient Condition: Stable
[2024-05-17 17:50] LABS: NT Pro B Type Natriuretic Pept 1770 pg/mL (19.9-100)
[2024-05-17 17:51] LABS: Ethanol < 10 mg/dL (<10)
[2024-05-17 17:53] LABS: Alveolar/Arterial O2 Gradient 35.7 mmHg; Base Excess ABG -2.5 mEq/l (+/-2.0); Fractional Inspired Oxygen 21 %; HCO3 ABG 21.3 mEq/l (22.0-26.0); Oxygen Content ABG 20.3 %vol (16.0-22.0); Oxyhemoglobin 89.6 % THb (90.0-100.0); PCO2 ABG 34.3 mmHg (35.0-45.0); PO2 FiO2 Ratio Arterial Blood 3.48 %; Total Hemoglobin 16.1 g/dL (12.0-18.0)
[2024-05-17 17:54] LABS: Device ROOM AIR; Modified Allen's Test Pass; Site Drawn RIGHT RADIAL
--- OUTSIDE RECORDS SUMMARY | 2024-05-17 18:25 | XMS_ITS | Referral Summary ---
Author Organization [facility] [address] [facility] Address [address] [place] [address] Care Team Providers Care Watch Manufacturing Supervisor Name Role Phone Yoanna Grimes MD Primary Care Provider [phone] Allergies Active Allergy Reactions Criticality Noted Date [...] Alcoholism in recovery 06/05/2018 Overview (06/05/2018): 12/2017 [facility] for rehab Assessment & Plan (06/09/2018 12:00 AM CDT): Doing well. Continue per Addiction Specailist. Moderate episode of recurrent major depressive d isorder 06/05/2018 SNEHAL (stress urinary incontinence, female) 2018 Assessment & Plan (06/09/2018 12:00 AM CDT): Plans to followup with CLIENT SERVICES ASSOCIATE at her convience. She wants to [...] on file Legal Sex Female 11:10 PM PATIENT INSURANCE CLERK Gender Identity Female 06/16/2019 9:01 AM CDT Sexual Orientation Straight 06/16/2019 9: 02 AM CDT Last Filed Vital Signs Vital Sign Reading Time Taken Comments Blood Pressure 160/110 02/24/2020 11:30 AM PATIENT INSURANCE CLERK Pulse 102 02/24/2020 11:30 AM PATIENT INSURANCE CLERK Temperature 36.8 C (98.3 F) 02/24/2020 11:30 AM PATIENT INSURANCE CLERK Respiratory Rate 18 02/24/2020 11:30 AM PATIENT INSURANCE CLERK Oxygen Saturation 97% 02/24/2020 11:30 AM PATIENT INSURANCE CLERK Inhaled Oxygen Concentration - - Weight 86.2 kg (190 lb) 02/24/2020 11:30 AM PATIENT INSURANCE CLERK Height 165.1 cm (5' 5 ) 02/24/2020 11:30 AM PATIENT INSURANCE CLERK Body Mass Index 31.62 02/24/2020 11:30 AM PATIENT INSURANCE CLERK Plan of Treatment Not on file Procedures [...] Recently Relevant to Health Maintenance Insurance [employer] [facility] [facility] Care Teams Watch Manufacturing Supervisor Relationship Specialty Start Date End Date Yoanna Grimes MD PCP - General Family Medicine 01/19/23
--- OUTSIDE RECORDS SUMMARY | 2024-05-17 18:25 | XMS_ITS | Clinical Summary ---
Author Organization [facility] Address [address] [place] [address] Care Team Providers Care Facility Worker Name Role Phone Yoanna Grimes Primary Care Provider [phone] Source Comments [facility],non-owned Affiliates and Associated Physician Practices is amultiple site organization consisting of ambulatory clinics and hospital sitesin [place], [place], [place] and [place]. This disclosure is being madepursuant to the Care Everywhere program and may not contain all information available regarding this patient. Last updated 17.[facility] [employer] Social History Tobacco Use Types Packs/Day Years [...] age to complete this topic Care Teams Facility Worker Relationship Specialty Start Date End Date Yoanna Grimes [address] [place] [address] PCP - General 04/19/23
--- OUTSIDE RECORDS SUMMARY | 2024-05-17 18:25 | XMS_ITS | Clinical Summary ---
Author Organization [facility] [address] [facility] Address [address] [place] [address] Care Team Providers Care Flatbed Company Driver Name Role Phone Yoanna Grimes MD Primary [...] Alcoholism in recovery 06/05/2018 Overview (06/05/2018): 12/2017 [facility] for rehab Assessment & Plan (06/09/2018 12:00 AM CDT): Doing well. Continue per Addiction Specailist. Moderate episode of recurrent major depressive d isorder 06/05/2018 SNEHAL (stress urinary incontinence, female) 2018 Assessment & Plan (06/09/2018 12:00 AM CDT): Plans to followup with VICE PRESIDENT UNDERWRITING at her convience. She wants to work [...] on file Legal Sex Female 11:10 PM CARPET YARN WINDER OPERATOR Gender Identity Female 06/16/2019 9:01 AM CDT Sexual Orientation Straight 06/16/2019 9: 02 AM CDT Obstetrics History Last Filed Vital Signs Vital Sign Reading Time Taken Comments Blood Pressure 160/110 02/24/2020 11:30 AM CARPET YARN WINDER OPERATOR Pulse 102 02/24/2020 11:30 AM CARPET YARN WINDER OPERATOR Temperature 36.8 C (98.3 F) 02/24/2020 11:30 AM CARPET YARN WINDER OPERATOR Respiratory Rate 18 02/24/2020 11:30 AM CARPET YARN WINDER OPERATOR Oxygen Saturation 97% 02/24/2020 11:30 AM CARPET YARN WINDER OPERATOR Inhaled Oxygen Concentration - - Weight 86.2 kg (190 lb) 02/24/2020 11:30 AM CARPET YARN WINDER OPERATOR Height 165.1 cm (5' 5 ) 02/24/2020 11:30 AM CARPET YARN WINDER OPERATOR Body Mass Index 31.62 02/24/2020 11:30 AM CARPET YARN WINDER OPERATOR Plan of Treatment Health Maintenance Due Date [...] Most Recently Relevant to Health Maintenance Insurance [facility] [place] [id number] [facility] Address: [facility] [address] [place] [address] Care Teams Flatbed Company Driver Relationship Specialty Start Date End Date Yoanna Grimes MD PCP - General Family Medicine 01/19/23
[2024-05-17 18:41] LABS: Add Urine Microscopic? YES; Appearance Urine Clear (Clear); Bacteria Urine None Seen /hpf; Bilirubin Urine Negative (Negative); Blood Urine Non-Hemolyzed Trace (Negative); Color Urine Yellow (Yellow); Glucose Urine UA Negative (Negative); Ketones Urine Negative (Negative); Leukocyte Esterase Ur Trace LEU/UL (Negative); Nitrate Urine Negative (Negative); Non Pathogenic Casts 0-2; Protein Urine Trace mg/dL (Negative); Squamous Epithelial Cell Urine None Seen /hpf (Few); Urobilinogen Urine 0.2 mg/dL (<2.0); WBC Urine 0-5 /hpf (0-3); pH Urine 6.5 (5.0-9.0)
[2024-05-17 18:58] LABS: Barbiturate Screen Urine Negative (Negative); Benzodiazepines Screen Urine Positive (Negative)
[2024-05-17 19:00] LABS: Amphetamine Screen Urine Positive (Negative); Cannabinoid Screen Urine Negative (Negative); Cocaine Screen Urine Negative (Negative); Methadone Screen Urine Negative (Negative); Opiate Screen Urine Negative (Negative); Phencyclidine Screen Urine Negative (Negative)
[2024-05-17 20:08] LABS: Troponin I 0.046 ng/mL (0.000-0.034)
[2024-05-17 21:11] LABS: Influenza A QL RT-PCR Negative (Negative); Influenza B QL RT-PCR Negative (Negative); RSV RNA, RT-PCR Negative (Negative); SARS-CoV-2 RNA PCR Negative (Negative)
--- NOTE | 2024-05-17 21:14 | P.HP_ITS ---
H&P: HPI History of Present Illness Date/Time: 05/17/24 21:14 Chief Complaint: Shortness of breath Narrative: This is a 54-year-old female with a history of lupus per self report, MEGHAN, agoraphobia with panic attacks, depression, alcohol use disorder, hypertension, tobacco dependence, methamphetamine abuse. She presents to [place] ER with complaint of elevated blood pressure along with stress and sh ortness of breath for a few weeks. Then, over the past few days she has experienced generally ill with a cough productive of clear sputum. ER evaluation demonstrates heart rate 115 to 98, respiratory rate 20, blood pressure 168/90, saturating 98% on room air. WBC 6.7, hemoglobin 16.2, troponin 0.046 to .048, BNP 1770, serum ETOH level less than 10, urine toxicology positive for amphetamines and benzodiazepines, quad viral screen negative. Chest x-ray demonstrating cardiomegaly with pulmonary vascular congestion, subsegmental basilar atelectasis/consolidation. Administer ceftriaxone and azithromycin. Review of Systems Review of Systems: All systems reviewed & are unremarkable except as noted in HPI and below (HPI) [facility] Past Medical History Medical History Agoraphobia with panic disorder Alcohol abuse Severe obstructive sleep apnea Family History Family History Father Family history of lung cancer Hypertension Family history of chronic obstructive pulmonary disease Mother Family history of lung cancer Social History Social History (Updated 12/26/19 @ 16:14 by Nathaly Bravo PA-C) Smoking status: Former smoker Smoking end date: 02/12/17 Alcohol intake: never Substance use: never Living arrangements: with family Meds Home Medications and Allergies Home Medications ?Medication ?Instructions ?Recorded ?Confirmed ?Type amlodipine 5 mg tablet (Norvasc) 5 mg PO DAILY 04/24/19 History buspirone 5 mg tablet 5 mg PO TID 04/24/19 History citalopram 40 mg tablet (Celexa) 40 mg PO DAILY 04/24/19 History hydrocodone 5 mg-acetaminophen 325 1 tablet PO Q8H PRN pain #10 tabs 12/26/19 Rx mg tablet ([place]) Allergies Allergy/AdvReac Type Severity Reaction Status Date / Time ofloxacin Allergy Mild RASH Verified 09/18/18 11:14 ciprofloxacin Allergy Unknown Verified 04/09/12 08:11 Sulfa (Sulfonamide Allergy Unknown Verified 05/01/18 08:17 Antibiotics) Vital Signs Vital Signs - 24 hr 05/17/24 16:26 05/17/24 16:41 05/17/24 17:30 Pulse Rate 115 H 98 98 Respiratory Rate 20 23 H 20 Blood Pressure 168/90 H 146/84 H 151/88 H Pulse Oximetry 98 100 98 Oxygen Delivery Room Air 05/17/24 17:46 05/17/24 18:01 05/17/24 18:16 Pulse Rate 96 94 91 Respiratory Rate 19 16 20 Blood Pressure 145/78 H 123/60 116/59 L Pulse Oximetry 98 98 98 Oxygen Delivery 05/17/24 18:30 05/17/24 19:01 05/17/24 19:15 Pulse Rate 95 96 99 Respiratory Rate 18 20 19 Blood Pressure 132/87 145/78 H 145/78 H Pulse Oximetry 97 92 99 Oxygen Delivery 05/17/24 19:46 05/17/24 20:16 Pulse Rate Respiratory Rate 19 12 Blood Pressure 140/83 130/63 Pulse Oximetry 95 Oxygen Delivery Exam Const: General: comfortable and no acute distress Other: A&O x3 HENMT: Mouth: Yes moist mucous membranes Eyes: Pupils: Equal, round and reactive pupils present Neck: Neck: supple Resp: Effort & Inspection: normal respiratory effort Auscultation: clear to auscultation bilaterally Cardio: Rate: regular rate Rhythm: regular rhythm Heart sounds: no gallops, no murmurs and no rubs GI: Inspection: non-distended GI Palp: Yes Soft to palpation and No Tenderness to palpation present (GI) Auscultation: normal bowel sounds : General: Yes bladder normal to palpation Neuro: Motor exam (neuro): 5/5 motor strength present throughout Sensory Exam: normal sensation Extrem: General: no edema H&P: Results Labs Labs: Short CBC 05/17/24 Range/Units 16:53 WBC 6.7 (4.5-10.0) K/mm3 Hgb 16.2 H (12.0-15.0) g/dL Hct 49.9 H (37.0-47.0) % Plt Count 260 (150-375) k/mm3 BMP 05/17/24 16:53 Sodium 142 Potassium 4.0 Chloride 104 Carbon Dioxide 29 BUN 14 Creatinine 0.77 Glucose 94 Calcium 10.0 Cardiac Enzymes 05/17/24 05/17/24 Range/Units 16:53 19:34 Troponin I 0.048 H* 0.046 H* (0.000-0.034) ng/mL Liver Function 05/17/24 Range/Units 16:53 Total Bilirubin 0.7 (0.2-1.3) mg/dL AST 26 (14-36) U/L ALT 21 (6-35) U/L Alkaline Phosphatase 83 (38-126) U/L Albumin 4.5 (3.5-5.1) g/dL Urine 05/17/24 Range/Units 18:29 Urine Color Yellow (Yellow) Urine Appearance Clear (Clear) Urine pH 6.5 (5.0-9.0) Ur Specific [place] 1.010 (1.001-1.035) Urine Protein Trace (Negative) mg/dL Urine Glucose (UA) Negative (Negative) mg/dL Assessment and Plan Assessment and plan (1) Cough: Code(s): R05.9 - Cough, unspecified Status: Acute (2) Elevated troponin: Code(s): R79.89 - Other specified abnormal findings of blood chemistry Status: Acute (3) Shortness of breath: Code(s): R06.02 - Shortness of breath Status: Acute Plan This is a 54-year-old female with a history of lupus per self report, MEGHAN, agoraphobia with panic attacks, depression, alcohol use disorder, hypert ension, tobacco dependence, methamphetamine abuse. She presents to [place] ER with complaint of elevated blood pressure along with stress and shortness of breath for a few weeks. Then, over the past few days she has experienced generally ill with a cough productive of clear sputum. ER evaluation demonstrates heart rate 115 to 98, respiratory rate 20, blood pressure 168/90, saturating 98% on room air. WBC 6.7, hemoglobin 16.2, troponin 0.046 to .048, BNP 1770, serum ETOH level less than 10, urine toxicology positive for amphetamines and benzodiazepines, quad viral screen negative. Chest x-ray demonstrating cardiomegaly with pulmonary vascular congestion, subsegmental basilar atelectasis/consolidation. Administer ceftriaxone and azithromycin. ----- Patient has had progressive shortness of breath over a few weeks along with more recent cough productive of clear sputum. Differential includes acute bronchitis verses early onset CHF it evidence of pulmonary vascular congestion and elevated BNP although no lower extremity edema and cardiomegaly which could be related to methamphetamine use as well. She received ceftriaxone and azithromycin in the ER. Afebrile and WBC count is normal. Treat supportively for symptomatology of bronchitis. Quad viral screen negative, will check full respiratory viral pathogen panel. Will give Lasix 20 mg x 1 now and reassess for improvement. She has although resting quite comfortably. Check echocardiogram. Care coordination consult for substance abuse. She has been counseled extensively. Troponin is so far flat, continue to trend peaked. Atelectasis. Incentive spirometer ordered. Uncontrolled hypertension. Consult to stop methamphetamine. Restart GROUNDS/MAINTENANCE SPECIALIST antihypertensives and continue to trend blood pressure. ----- Full code. SCDs. Saline lock IV. Heart healthy diet. Hospitalist [facility] Advance Care Plan I have confirmed that the patient's Advanced Care Plan is present, code status is documented, or surrogate decision maker is listed in patient medical record.: Yes Medication Reconciliation I have utilized all available resources to obtain, update and review the patients current medications (includes all prescriptions, OTC, herbals, cannabis, and nutritional supplements).: Yes
--- NOTE | 2024-05-17 22:00 | ADMGEN ---
This patient, Doreen Nielson, was admitted to 2 Medical Room 241-01. Patient/family oriented to hospital policies and general routines including ID bracelet, bed and alarms, visiting hours, pain management, procedures, bathroom and other care routines, personal items, smoking policy, room service/diet, and visiting hours. Information on how to activate the Rapid Response Team has been discussed. Patient/Family are encouraged to report perceived risks to care and to ask questions if they do not understand what they are told or what they should do.
--- NOTE | 2024-05-31 20:13 | PM.DS ---
DS: Admitting Diagnosis Discharge Date 05/17/24 Admitting Diagnosis Shortness of breath DS: Discharge Diagnosis Discharge Diagnosis (1) Cough: Code(s): R05.9 - Cough, unspecified Status: Acute (2) Shortness of breath: Code(s): R06.02 - Shortness of breath Status: Acute DS: Summary Hospital Course Hospital Course: Please see H&P for full detail. Shortly after admission patient decides to leave against medical advice despite guided medical advice and warning against adverse events possible. Status at Discharge Functional status at discharge: independent ambulation Time Spent with Patient Time attestation: Total time spent providing and/or coordinating discharge services: Exam Const: General: comfortable and no acute distress Eyes: Pupils: Equal, round and reactive pupils present Neck: Neck: supple Resp: Effort & Inspection: normal respiratory effort Auscultation: clear to auscultation bilaterally Cardio: Rate: regular rate Rhythm: regular rhythm GI: GI Palp: Yes Soft to palpation Extrem: General: no edema Discharge Plan Discharge Attending physician on discharge: Jennifer Garland Consulting providers: Davi Polanco; Desmond Benson Discharging Clinician: Jennifer Garland Patient Disposition: Left Against Medical Advice Patient Language: Kyrgyz Discharge Medications: No Action buspirone 5 mg tablet 5 mg PO TID amlodipine [Norvasc] 5 mg tablet 5 mg PO DAILY citalopram [Celexa] 40 mg tablet 40 mg PO DAILY hydrocodone-acetaminophen [[place]] 5-325 mg tablet 1 tablet PO Q8H PRN (Reason: pain) Qty: 10 0RF Date of admission: 05/17/24 20:18 Primary Care Provider: PHYSICIAN NOT ON STAFF,NONSTAFF Admitting Provider: Jennifer Garland Attending physician on admission: Jennifer Garland Condition: Stable Hospitalist MIPS Heart Failure (Exclusion) Patient has history of Heart Transplant or Left Ventricular Assistive Device?: No IF YES, STOP HERE Heart Failure (Qualifier) Patient has current or prior documentation of LVEF less than or equal to 40%, or mod/servere depressed LVSF?: No IF NO, STOP HERE If Yes, Heart Failure (Qualifier) Patient was prescribed or already taking an Angiotensin-Converting Enzyme (ELIZABETH) Inhibitor, or Antiotensin Receptor Marc (ARB): No Patient was prescribed or already taking bisoprolol, carvedilol, or sustained release metoprolol succinate: No If Medications not prescribed/taking Reason patient not prescribed/taking ELIZABETH or ARB: Patient reasons: pt declined or other pt reason Reason patient not prescribed/taking bisoprolol, carvedilol, or sustained realease metoprolol succinate: Patient reasons: pt declined or other pt reason
== END 2024-05-17 23:15 | disposition left against medical advice (07) ==
LOC: ANHED 18:22 → ANH2MED 21:07
PROVIDERS: Family Medicine; Admitting Provider General Practice; Emergency Provider Physician Assistant; Visit Provider General Practice
DX: R06.02 Shortness of breath (principal); R05.9 Cough, unspecified; R79.89 Other specified abnormal findings of blood chemistry; I10 Essential (primary) hypertension; F40.01 Agoraphobia with panic disorder; Z87.891 Personal history of nicotine dependence; G47.33 Obstructive sleep apnea (adult) (pediatric); F32.A Depression, unspecified; F15.10 Other stimulant abuse, uncomplicated; F10.90 Alcohol use, unspecified, uncomplicated; Z20.822 Contact with and (suspected) exposure to COVID-19; Z79.899 Other long term (current) drug therapy
CPT/HCPCS: 36415; 36600; 71046; 80053; 80307; 81001; 82077; 82805; 83690; 83880; 84443; 84484; 85018; 85025; 85380; 85610; 85730; 87637; 93005; 96374; 99285; G0378; J0696